=== PATIENT | female | born 1980 | race Caucasian/White ===

== ENCOUNTER 2017-04-06 03:14 | Inpatient (IN) | payer MEDICAID ==
[~2017-04-06] VITALS: Ht 170.2 cm; Wt 61.3 kg
[2017-04-06] MEDS ORDERED: ONDANSETRON ODT 4 MG ONE (04:04)
[2017-04-06] MEDS ORDERED: HYDROmorphone 1 MG/ML, 1ML ONE ×2 (04:04→06:39)
[2017-04-06] MEDS ORDERED: SODIUM CHLORIDE 0.9% 1,000ML IVBOLUS ONE ×2 (04:30→06:00)
[2017-04-06] MEDS ORDERED: ONDANSETRON ODT 4 MG PO ONE (04:30)
[2017-04-06] MEDS ORDERED: HYDROmorphone 1 MG/ML, 1ML IV ONE ×2 (04:30→07:30)
[2017-04-06] MEDS ORDERED: SODIUM CHLORIDE FLUSH 10ML SYR IVF ONE (04:30)
[2017-04-06 05:33] LABS: HEMATOCRIT 32.7 % (34.6-47.8); HEMOGLOBIN 10.5 g/dL (11.7-16.4); WHITE BLOOD COUNT 23.5 x10^3/uL (3.4-10)
[2017-04-06 05:47] LABS: BLOOD UREA NITROGEN 11 mg/dL (7-18)
[2017-04-06 05:52] LABS: ASPARTATE AMINO TRANSFERASE 12 U/L (15-37); DIFF TOTAL CELLS COUNTED 100 CELL DIFF
[2017-04-06 05:53] LABS: ANISOCYTOSIS 1+; VERIFY COUNTS? YES
[2017-04-06 05:54] LABS: MICROCYTOSIS 1+
[2017-04-06 05:57] LABS: HYPOCHROMIA 1+; OVALOCYTES 1+
[2017-04-06] MEDS ORDERED: LIDOCAINE 1%, 20ML ONE (05:59)
[2017-04-06] MEDS ORDERED: VANCOMYCIN PMX 1GM/200ML 200 ML IV ONE (06:00)
[2017-04-06] MEDS ORDERED: VANCOMYCIN PER PHARMACY MC PRN (06:00)
[2017-04-06] MEDS ORDERED: POTASSIUM CHLORIDE 40 MEQ in SODIUM CHLORIDE 0.9% 500 ML IV ONE (07:00)
[2017-04-06] MEDS ORDERED: ETOMIDATE 20 MG/10 ML ONE ×2 (09:19→09:37)
[2017-04-06] MEDS ORDERED: NS + 20MEQ KCL 1,000 ML IV SCH (09:49)
[2017-04-06] MEDS ORDERED: ONDANSETRON 2MG/ML, 2ML IVPush PRN ×2 (10:00→12:00)
[2017-04-06] MEDS ORDERED: CEFEPIME 2 GM in DEXTROSE 5% 100 ML IV SCH (10:00)
[2017-04-06] MEDS ORDERED: DOCUSATE 100 MG CAPSULE PO PRN (10:00)
[2017-04-06] MEDS ORDERED: ACETAMINOPHEN 325 MG TABLET PO PRN (10:00)
[2017-04-06] MEDS: NICOTINE 21 MG/24 HR PATCH.TD24 TD SCH (10:00)
[2017-04-06] MEDS ORDERED: hydrALAzine 20 MG/ML, 1ML IVPush PRN (10:00)
[2017-04-06] MEDS: METRONIDAZOLE PMX 500MG/100ML 100 ML IV SCH ×2 (10:00→19:22)
[2017-04-06] MEDS ORDERED: POLYETHYLENE GLYCOL 17 GM PACKET PO PRN (10:00)
[2017-04-06] MEDS ORDERED: ETOMIDATE 20 MG/10 ML IV ONE ×2 (10:00)
[2017-04-06 10:21] LABS: HEMATOCRIT 31.4 % (34.6-47.8); WHITE BLOOD COUNT 22.7 x10^3/uL (3.4-10)
[2017-04-06 10:35] LABS: TOTAL IRON BINDING CAPACITY 292 mcg/dL (250-450)
[2017-04-06 10:45] LABS: DIFF TOTAL CELLS COUNTED 100 CELL DIFF
[2017-04-06 10:49] LABS: ANISOCYTOSIS 1+; MICROCYTOSIS 1+; VERIFY COUNTS? YES
[2017-04-06 10:50] LABS: HYPOCHROMIA 1+
[2017-04-06] MEDS ORDERED: CEFAZOLIN 1,000 MG ONE (10:51)
[2017-04-06] MEDS ORDERED: SUCCINYLCHOLINE 20 MG/ML, 10ML ONE (10:51)
[2017-04-06] MEDS ORDERED: PROPOFOL 10 MG/ML, 20ML ONE (10:51)
[2017-04-06] MEDS ORDERED: PHENYLEPHRINE 10 MG/ML ONE (10:51)
[2017-04-06] MEDS ORDERED: KETOROLAC 30 MG/1 ML ONE (10:51)
[2017-04-06] MEDS ORDERED: FENTANYL PF 100 MCG/2ML ONE ×4 (11:21→11:53)
[2017-04-06] MEDS ORDERED: MIDAZOLAM 1 MG/ML, 2ML ONE ×2 (11:53→13:04)
[2017-04-06] MEDS ORDERED: LABETALOL 5MG/ML, 20ML IV PRN (12:00)
[2017-04-06] MEDS ORDERED: hydrALAzine 20 MG/ML, 1ML IV PRN (12:00)
[2017-04-06] MEDS ORDERED: OXYcodone 5 MG/5 ML ORAL.SOL UDC PO PRN (12:00)
[2017-04-06] MEDS ORDERED: MEPERIDINE/PF 25MG/0.5ML IVPush PRN (12:00)
[2017-04-06] MEDS ORDERED: PROMETHAZINE 25 MG/ML, 1ML IV PRN (12:00)
[2017-04-06] MEDS ORDERED: ALBUTEROL SULFATE 2.5 MG/3 ML NPPB PRN (12:00)
[2017-04-06] MEDS ORDERED: OXYcodone 5 MG/5 ML ORAL.SOL UDC ONE (12:06)
[2017-04-06] MEDS ORDERED: HYDROmorphone 2 MG/ML, 1ML ONE (12:06)
[2017-04-06] MEDS ORDERED: MEPERIDINE/PF 25MG/0.5ML ONE (12:06)
[2017-04-06] MEDS: FENTANYL PF 100 MCG/2ML IV PRN ×2 (12:12→12:27)
[2017-04-06] MEDS: MIDAZOLAM 1 MG/ML, 2ML IV PRN ×4 (12:13→13:43)
[2017-04-06] MEDS: HYDROmorphone 1 MG/ML, 1ML IV PRN ×6 (12:17→13:17)
[2017-04-06] MEDS: CEFAZOLIN PMX 2GM/50ML 50 ML IVPB SCH ×2 (12:30→21:58)
[2017-04-06 15:46] LABS: HIV 1&2 ANTIBODY SCREEN Nonreactive (Nonreactive); HIV-1 p24 ANTIGEN Nonreactive (Nonreactive)
[2017-04-06 20:00] VITALS: BP 87/50
[2017-04-06] MEDS: NS + 20MEQ KCL 1,000 ML IV SCH (20:00)
[2017-04-06] MEDS: OXYcodone IR 5MG TABLET PO PRN (20:12)
[2017-04-06 22:06] VITALS: BP 90/50
[2017-04-06] MEDS: morphine SULFATE 10 MG/ML, 1ML IVPush PRN (23:03)
[2017-04-07 00:05] VITALS: BP 94/56
[2017-04-07] MEDS: OXYcodone IR 5MG TABLET PO PRN ×4 (00:25→18:38)
[2017-04-07] MEDS: morphine SULFATE 10 MG/ML, 1ML IVPush PRN ×5 (02:23→22:25)
[2017-04-07] MEDS: METRONIDAZOLE PMX 500MG/100ML 100 ML IV SCH ×4 (02:40→20:30)
[2017-04-07 04:19] VITALS: BP 90/50
[2017-04-07] MEDS: NS + 20MEQ KCL 1,000 ML IV SCH ×2 (05:30→10:48)
[2017-04-07] MEDS: CEFAZOLIN PMX 2GM/50ML 50 ML IVPB SCH ×2 (05:51→13:31)
[2017-04-07 07:24] VITALS: BP 92/53
[2017-04-07] MEDS: LORazepam 2 MG/ML, 1ML IVPush PRN ×3 (08:01→22:46)
[2017-04-07 09:03] LABS: HEMATOCRIT 26.6 % (34.6-47.8); HEMOGLOBIN 8.4 g/dL (11.7-16.4); WHITE BLOOD COUNT 21.6 x10^3/uL (3.4-10)
[2017-04-07 09:13] LABS: ASPARTATE AMINO TRANSFERASE 8 U/L (15-37); BLOOD UREA NITROGEN 10 mg/dL (7-18)
[2017-04-07] MEDS: METHADONE 5 MG TABLET PO SCH ×2 (10:48→20:50)
[2017-04-07] MEDS: NICOTINE 21 MG/24 HR PATCH.TD24 TD SCH (10:48)
[2017-04-07] MEDS ORDERED: POTASSIUM CHLORIDE 20 MEQ TAB.ER.PRT PO ONE (12:00)
[2017-04-07] MEDS: DOCUSATE 100 MG CAPSULE PO SCH ×2 (12:00→20:50)
[2017-04-07] MEDS ORDERED: IBUPROFEN 200 MG TABLET PO PRN (14:30)
[2017-04-07 16:44] VITALS: BP 97/58
[2017-04-07] MEDS: DIPHENHYDRAMINE 25 MG CAPSULE PO PRN (17:14)
[2017-04-07] MEDS: FERROUS GLUCONATE 324 MG TABLET PO SCH (18:38)
[2017-04-07 19:39] VITALS: BP 93/53
[2017-04-07] MEDS ORDERED: VANCOMYCIN PER PHARMACY MC PRN (20:30)
[2017-04-07] MEDS: CEFTRIAXONE PMX 2GM/50ML 50 ML IV SCH (20:50)
[2017-04-07] MEDS ORDERED: PHARMACOKINETIC MONITORING MC PRN (21:00)
[2017-04-07] MEDS ORDERED: VANCOMYCIN PMX 1GM/200ML 200 ML IV ONE (21:00)
[2017-04-07] MEDS ORDERED: PHARMACOKINETIC CONSULTATION MC ONE (21:00)
[2017-04-08] MEDS: NS + 20MEQ KCL 1,000 ML IV SCH ×3 (00:41→16:48)
[2017-04-08 01:36] VITALS: BP 97/61
[2017-04-08] MEDS: METRONIDAZOLE PMX 500MG/100ML 100 ML IV SCH ×3 (02:36→18:09)
[2017-04-08 05:39] LABS: HEMATOCRIT 24.4 % (34.6-47.8); HEMOGLOBIN 7.6 g/dL (11.7-16.4)
[2017-04-08 05:41] LABS: BLOOD UREA NITROGEN 10 mg/dL (7-18)
[2017-04-08] MEDS: OXYcodone IR 5MG TABLET PO PRN ×3 (05:55→18:17)
[2017-04-08] MEDS: DIPHENHYDRAMINE 25 MG CAPSULE PO PRN (05:56)
[2017-04-08 06:45] LABS: ANISOCYTOSIS 1+; HYPOCHROMIA 1+; MICROCYTOSIS 1+
[2017-04-08 10:08] VITALS: BP 104/66
[2017-04-08] MEDS: DOCUSATE 100 MG CAPSULE PO SCH ×2 (10:11→20:27)
[2017-04-08] MEDS: NICOTINE 21 MG/24 HR PATCH.TD24 TD SCH (10:12)
[2017-04-08] MEDS: VANCOMYCIN PMX 1GM/200ML 200 ML IV SCH ×2 (10:14→21:25)
[2017-04-08] MEDS: METHADONE 5 MG TABLET PO SCH ×2 (10:14→20:27)
[2017-04-08] MEDS: morphine SULFATE 10 MG/ML, 1ML IVPush PRN ×3 (10:14→21:25)
[2017-04-08] MEDS: FERROUS GLUCONATE 324 MG TABLET PO SCH ×2 (10:14→18:09)
[2017-04-08] MEDS: LORazepam 2 MG/ML, 1ML IVPush PRN ×2 (12:01→18:17)
[2017-04-08 14:15] VITALS: BP 98/61
[2017-04-08 19:52] VITALS: BP 104/68
[2017-04-08] MEDS: CEFTRIAXONE PMX 2GM/50ML 50 ML IV SCH (20:28)
[2017-04-09 01:40] VITALS: BP 100/68
[2017-04-09] MEDS: METRONIDAZOLE PMX 500MG/100ML 100 ML IV SCH ×2 (02:28→10:08)
[2017-04-09] MEDS: NS + 20MEQ KCL 1,000 ML IV SCH (05:20)
[2017-04-09] MEDS: morphine SULFATE 10 MG/ML, 1ML IVPush PRN ×2 (05:21→09:09)
[2017-04-09] MEDS: LORazepam 2 MG/ML, 1ML IVPush PRN ×2 (05:53→10:08)
[2017-04-09 06:31] VITALS: BP 114/76
[2017-04-09 06:31] LABS: HEMATOCRIT 25.1 % (34.6-47.8); HEMOGLOBIN 7.9 g/dL (11.7-16.4); WHITE BLOOD COUNT 10.4 x10^3/uL (3.4-10)
[2017-04-09 06:36] LABS: BLOOD UREA NITROGEN 9 mg/dL (7-18)
[2017-04-09] MEDS: FERROUS GLUCONATE 324 MG TABLET PO SCH (09:08)
[2017-04-09] MEDS: DOCUSATE 100 MG CAPSULE PO SCH (09:08)
[2017-04-09] MEDS: NICOTINE 21 MG/24 HR PATCH.TD24 TD SCH (09:09)
[2017-04-09] MEDS: METHADONE 5 MG TABLET PO SCH (09:09)
[2017-04-09] MEDS: VANCOMYCIN PMX 1GM/200ML 200 ML IV SCH (09:09)
== END 2017-04-09 11:29 | disposition left against medical advice (07) | DRG 871 ==
LOC: ED 03:43 → ORIP 09:49 → 4NOR 13:55
PROVIDERS: ADMIT Internal Medicine; ATTEND Internal Medicine
DX: A41.9 Sepsis, unspecified organism (principal); M72.6 Necrotizing fasciitis; E44.0 Moderate protein-calorie malnutrition; E87.1 Hypo-osmolality and hyponatremia; D50.9 Iron deficiency anemia, unspecified; F13.10 Sedative, hypnotic or anxiolytic abuse, uncomplicated; L02.415 Cutaneous abscess of right lower limb; L03.90 Cellulitis, unspecified; F11.10 Opioid abuse, uncomplicated; D75.89 Other specified diseases of blood and blood-forming organs; E87.6 Hypokalemia; F17.210 Nicotine dependence, cigarettes, uncomplicated; F19.10 Other psychoactive substance abuse, uncomplicated; R65.20 Severe sepsis without septic shock; Z88.0 Allergy status to penicillin; Z68.21 Body mass index [BMI] 21.0-21.9, adult; Z71.6 Tobacco abuse counseling
CPT/HCPCS: 36415; 80048; 80053; 81001; 83540; 83550; 83605; 83735; 84100; 84145; 84703; 85025; 85730; 86703; 86704; 86706; 86708; 86803; 87040; 87070; 87075; 87076; 87086; 87176; 87205; 87340; 87899; 93005; 93306; 96361; 96374; 96375; 96376; J0690; J0696; J1170; J1885; J2175; J2250; J2704; J3010; J3370; J3480; Q0162; G0435; J0330; J2060; J2270; J2370; J7030; Q0163

== ENCOUNTER 2018-06-10 13:40 | Emergency (ER) | payer MEDICAID ==
[~2018-06-10] VITALS: Ht 170.2 cm; Wt 47.3 kg
[~2018-06-10 13:40] MED LIST: CEPH-368 PO; ERGO500017 PO; ERTA1VIA IV; KETO15CR2 TP; METH-356 PO; METH12VI2 SQ; METR500T PO; OXYC5TAB3 PO; PANT40TA5 PO; PREG75CA PO
[2018-06-10 15:40] LABS: BASOPHILS # (AUTO) 0.07 x10^3/uL (0-0.1); BASOPHILS % (AUTO) 1 % (0-1); EOSINOPHILS # (AUTO) 0.27 x10^3/uL (0-0.4); EOSINOPHILS % (AUTO) 2 % (1-7); LYMPHOCYTES # (AUTO) 2.08 x10^3/uL (1-3.4); LYMPHOCYTES % (AUTO) 17 % (22-44); MD NO; MEAN CORPUSCULAR HGB CONC 32.7 g/dL (32.4-35.8); MEAN CORPUSCULAR VOLUME 82.5 fL (80-100); MEAN PLATELET VOLUME 7.2 fL (7.4-10.4); MONOCYTES # (AUTO) 0.52 x10^3/uL (0.2-0.8); MONOCYTES % (AUTO) 4 % (2-9); NEUTROPHILS # (AUTO) 9.33 x10^3/uL (1.8-6.8); NEUTROPHILS % (AUTO) 76 % (42-75); PLATELET COUNT 460 x10^3/uL (130-400); RED CELL DISTRIBUTION WIDTH 16.6 % (9.6-15.2)
[2018-06-10 15:47] LABS: ALBUMIN 2.9 g/dL (3.4-5.0); ANION GAP 8 mmol/L (5-15); CHLORIDE 105 mmol/L (98-107); CREATININE 0.55 mg/dL (0.55-1.02)
[2018-06-10] MEDS ORDERED: CEFTRIAXONE 1,000 MG IM ONE (16:00)
[2018-06-10] MEDS ORDERED: CEFTRIAXONE 1,000 MG ONE (16:04)
[2018-06-10 17:23] VITALS: BP 108/53
== END 2018-06-10 19:08 | disposition home or self-care (01) ==
LOC: ED 16:30
DX: L03.116 Cellulitis of left lower limb (principal); F17.200 Nicotine dependence, unspecified, uncomplicated
CPT/HCPCS: 36415; 73552; 80048; 82040; 85025; 96372; 99285; J0696

== ENCOUNTER 2018-08-02 19:45 | Inpatient (IN) | payer MEDICAID ==
[~2018-08-02] VITALS: Ht 170.2 cm; Wt 52.8 kg
[2018-08-02] MEDS ORDERED: SODIUM CHLORIDE FLUSH 10ML SYR IVF ONE (20:00)
[2018-08-02 20:26] LABS: MEAN CORPUSCULAR HEMOGLOBIN 27.2 pg (27.0-34.8); MEAN CORPUSCULAR HGB CONC 33.7 g/dL (32.4-35.8); MEAN CORPUSCULAR VOLUME 80.8 fL (80-100); MEAN PLATELET VOLUME 7.1 fL (7.4-10.4); PLATELET COUNT 530 x10^3/uL (130-400); RED BLOOD COUNT 4.79 x10^6/uL (3.82-5.3)
[2018-08-02 20:35] LABS: ALBUMIN 3.2 g/dL (3.4-5.0); ANION GAP 11 mmol/L (5-15); CALCIUM 9.3 mg/dL (8.5-10.1); CHLORIDE 109 mmol/L (98-107); CREATININE 0.71 mg/dL (0.55-1.02)
[2018-08-02 20:41] LABS: BASOPHILS # (AUTO) 0.03 x10^3/uL (0-0.1); BASOPHILS % (AUTO) 0 % (0-1); EOSINOPHILS % (AUTO) 3 % (1-7); LYMPHOCYTES # (AUTO) 2.63 x10^3/uL (1-3.4); LYMPHOCYTES % (AUTO) 14 % (22-44); MD SCAN; MONOCYTES # (AUTO) 0.68 x10^3/uL (0.2-0.8); MONOCYTES % (AUTO) 4 % (2-9); NEUTROPHILS # (AUTO) 14.76 x10^3/uL (1.8-6.8); NEUTROPHILS % (AUTO) 79 % (42-75)
[2018-08-02] MEDS ORDERED: CEFTRIAXONE 1,000 MG in SODIUM CHLORIDE 0.9% 50 ML IVPB ONE (22:00)
[2018-08-02] MEDS ORDERED: VANCOMYCIN 1,300 MG in SODIUM CHLORIDE 0.9% 250 ML IV ONE (22:00)
[2018-08-02] MEDS ORDERED: VANCOMYCIN PER PHARMACY IV ONE (22:00)
[2018-08-02] MEDS ORDERED: SODIUM CHLORIDE FLUSH 10ML SYR IVF PRN (22:30)
[2018-08-02] MEDS ORDERED: OMNIPAQUE 350 MG/ML, 100ML BOTTLE ONE (23:21)
[2018-08-02 23:32] VITALS: BP 123/72
[2018-08-03] MEDS ORDERED: VANCOMYCIN PER PHARMACY MC PRN (00:30)
[2018-08-03] MEDS ORDERED: DOCUSATE 100 MG CAPSULE PO PRN (00:30)
[2018-08-03] MEDS ORDERED: ONDANSETRON ODT 4 MG PO PRN (00:30)
[2018-08-03] MEDS: NICOTINE 21 MG/24 HR PATCH.TD24 TD SCH (00:30)
[2018-08-03] MEDS ORDERED: LIDODERM 5% PATCH TD PRN (00:30)
[2018-08-03] MEDS: ACETAMINOPHEN 325 MG TABLET PO PRN ×3 (00:55→22:18)
[2018-08-03] MEDS ORDERED: PHARMACOKINETIC CONSULTATION MC ONE (01:00)
[2018-08-03] MEDS ORDERED: PHARMACOKINETIC MONITORING MC PRN (01:00)
[2018-08-03] MEDS: CEFTRIAXONE PMX 1GM/50ML 50 ML IV SCH ×3 (01:19→12:51)
[2018-08-03 03:16] VITALS: BP 126/69
[2018-08-03 08:11] VITALS: BP 148/73
[2018-08-03] MEDS ORDERED: CEFTRIAXONE PMX 1GM/50ML 50 ML IV SCH (10:00)
[2018-08-03] MEDS ORDERED: METHADONE 5 MG TABLET ONE (10:17)
[2018-08-03] MEDS: METHADONE 10 MG TABLET PO SCH (10:27)
[2018-08-03] MEDS: PREGABALIN 25 MG CAPSULE PO SCH ×3 (10:27→21:50)
[2018-08-03] MEDS: VANCOMYCIN PMX 1GM/200ML 200 ML IV SCH ×2 (11:38→23:11)
[2018-08-03] MEDS: MORPHINE SULFATE 4 MG/ML, 1ML IVPush PRN ×3 (12:16→21:50)
[2018-08-03 13:35] VITALS: BP 134/68
[2018-08-03 14:00] LABS: HCG UR SG 1.025 (1.003-1.030)
[2018-08-03] MEDS ORDERED: KETAMINE 50 MG/ML, 10ML ONE (14:36)
[2018-08-03] MEDS ORDERED: BACITRACIN 50,000 UNIT ONE (14:43)
[2018-08-03] MEDS ORDERED: MIDAZOLAM 1 MG/ML, 2ML ONE ×2 (14:48→15:40)
[2018-08-03] MEDS ORDERED: FENTANYL PF 250 MCG/5ML ONE (14:48)
[2018-08-03] MEDS ORDERED: PROPOFOL 10 MG/ML, 20ML ONE (14:55)
[2018-08-03] MEDS ORDERED: ONDANSETRON 2MG/ML, 2ML ONE (14:55)
[2018-08-03] MEDS ORDERED: BACITRACIN 50,000 UNIT IRRIG ONE (15:12)
[2018-08-03] MEDS ORDERED: ONDANSETRON 2MG/ML, 2ML IV PRN (15:30)
[2018-08-03] MEDS ORDERED: LABETALOL 5MG/ML, 20ML IV PRN (15:30)
[2018-08-03] MEDS ORDERED: PROMETHAZINE 12.5 MG SUPP PR PRN (15:30)
[2018-08-03] MEDS ORDERED: DIPHENHYDRAMINE 50 MG/ML, 1ML IVPush PRN (15:30)
[2018-08-03] MEDS ORDERED: MORPHINE SULFATE 4 MG/ML, 1ML IVPush PRN (15:30)
[2018-08-03] MEDS ORDERED: OXYcodone 5 MG/5 ML ORAL.SOL UDC PO PRN (15:30)
[2018-08-03] MEDS ORDERED: MEPERIDINE/PF 25MG/0.5ML IVPush PRN (15:30)
[2018-08-03] MEDS ORDERED: PROCHLORPERAZINE 5 MG/ML, 2ML IV PRN (15:30)
[2018-08-03] MEDS ORDERED: ONDANSETRON ODT 8 MG PO PRN (15:30)
[2018-08-03] MEDS ORDERED: PROMETHAZINE 25 MG SUPP PR PRN (15:30)
[2018-08-03] MEDS ORDERED: PROMETHAZINE 25 MG/ML, 1ML IV PRN (15:30)
[2018-08-03] MEDS ORDERED: EPHEDRINE 50 MG/ML, 1ML IVPush PRN (15:30)
[2018-08-03] MEDS: FENTANYL PF 100 MCG/2ML IV PRN ×2 (15:38→15:44)
[2018-08-03] MEDS ORDERED: FENTANYL PF 100 MCG/2ML ONE (15:40)
[2018-08-03] MEDS ORDERED: HYDROmorphone 2 MG/ML, 1ML ONE ×2 (15:40→16:02)
[2018-08-03] MEDS ORDERED: OXYcodone 5 MG/5 ML ORAL.SOL UDC ONE (15:40)
[2018-08-03] MEDS: MIDAZOLAM 1 MG/ML, 2ML IV PRN ×2 (15:45→15:50)
[2018-08-03] MEDS: HYDROmorphone 2 MG/ML, 1ML IVPush PRN ×8 (15:46→16:24)
[2018-08-03] MEDS ORDERED: MIDAZOLAM 1 MG/ML, 2ML IV PRN (16:00)
[2018-08-03 16:57] VITALS: BP 159/80
[2018-08-03 19:26] VITALS: BP 132/80
[2018-08-03] MEDS: TEMAZEPAM 15 MG CAPSULE PO PRN (21:50)
[2018-08-04 00:24] VITALS: BP 108/54
[2018-08-04] MEDS: NICOTINE 21 MG/24 HR PATCH.TD24 TD SCH (00:30)
[2018-08-04] MEDS: CEFTRIAXONE PMX 1GM/50ML 50 ML IV SCH (01:14)
[2018-08-04 05:14] LABS: ALBUMIN 2.5 g/dL (3.4-5.0); ANION GAP 6 mmol/L (5-15); CALCIUM 8.7 mg/dL (8.5-10.1); CHLORIDE 110 mmol/L (98-107)
[2018-08-04 05:18] LABS: ALANINE AMINOTRANSFERASE 21 U/L (12-78); ALKALINE PHOSPHATASE 137 U/L (45-117); BILIRUBIN,TOTAL 0.2 mg/dL (0.2-1.0); CREATININE 0.56 mg/dL (0.55-1.02); TOTAL PROTEIN 7.5 g/dL (6.4-8.2)
[2018-08-04 05:25] LABS: BASOPHILS # (AUTO) 0.06 x10^3/uL (0-0.1); BASOPHILS % (AUTO) 0 % (0-1); EOSINOPHILS # (AUTO) 0.41 x10^3/uL (0-0.4); EOSINOPHILS % (AUTO) 3 % (1-7); LYMPHOCYTES # (AUTO) 1.95 x10^3/uL (1-3.4); LYMPHOCYTES % (AUTO) 14 % (22-44); MD NO; MEAN CORPUSCULAR HEMOGLOBIN 27.4 pg (27.0-34.8); MEAN CORPUSCULAR HGB CONC 33.5 g/dL (32.4-35.8); MEAN CORPUSCULAR VOLUME 81.9 fL (80-100); MEAN PLATELET VOLUME 7.4 fL (7.4-10.4); MONOCYTES # (AUTO) 1.05 x10^3/uL (0.2-0.8); MONOCYTES % (AUTO) 7 % (2-9); NEUTROPHILS # (AUTO) 10.82 x10^3/uL (1.8-6.8); NEUTROPHILS % (AUTO) 76 % (42-75); PLATELET COUNT 453 x10^3/uL (130-400); RED BLOOD COUNT 4.76 x10^6/uL (3.82-5.3); RED CELL DISTRIBUTION WIDTH 16.4 % (9.6-15.2)
[2018-08-04] MEDS: ACETAMINOPHEN 325 MG TABLET PO PRN ×2 (06:30→21:27)
[2018-08-04] MEDS: MORPHINE SULFATE 4 MG/ML, 1ML IVPush PRN ×4 (06:30→21:27)
[2018-08-04 07:56] VITALS: BP 92/51
[2018-08-04] MEDS: PREGABALIN 25 MG CAPSULE PO SCH ×3 (08:55→21:28)
[2018-08-04] MEDS: METHADONE 10 MG TABLET PO SCH (08:55)
[2018-08-04 11:22] VITALS: BP 117/65
[2018-08-04] MEDS: VANCOMYCIN PMX 1GM/200ML 200 ML IV SCH (11:23)
[2018-08-04] MEDS ORDERED: OXYcodone/APAP 5/325MG TABLET PO PRN (13:00)
[2018-08-04 13:28] VITALS: BP 115/70
[2018-08-04] MEDS: SODIUM CHLORIDE 0.9% IV SCH (13:34)
[2018-08-04] MEDS: DAPTOMYCIN IV SCH (13:34)
[2018-08-04 20:00] VITALS: BP 111/65
[2018-08-04] MEDS: TEMAZEPAM 15 MG CAPSULE PO PRN (21:27)
[2018-08-05] MEDS: NICOTINE 21 MG/24 HR PATCH.TD24 TD SCH (00:30)
[2018-08-05 03:21] VITALS: BP 102/58
[2018-08-05] MEDS: ACETAMINOPHEN 325 MG TABLET PO PRN ×2 (03:35→07:51)
[2018-08-05] MEDS: MORPHINE SULFATE 4 MG/ML, 1ML IVPush PRN ×5 (03:35→21:18)
[2018-08-05 04:11] LABS: MICROSCOPIC NOT IND
[2018-08-05 07:39] VITALS: BP 125/69
[2018-08-05] MEDS: PREGABALIN 25 MG CAPSULE PO SCH ×3 (08:36→21:18)
[2018-08-05] MEDS: METHADONE 10 MG TABLET PO SCH (08:36)
[2018-08-05] MEDS: ACETAMINOPHEN 325 MG TABLET PO SCH ×2 (09:00→16:44)
[2018-08-05 09:13] LABS: BASOPHILS # (AUTO) 0.03 x10^3/uL (0-0.1); BASOPHILS % (AUTO) 0 % (0-1); EOSINOPHILS % (AUTO) 7 % (1-7); LYMPHOCYTES # (AUTO) 2.13 x10^3/uL (1-3.4); LYMPHOCYTES % (AUTO) 25 % (22-44); MD NO; MEAN CORPUSCULAR HEMOGLOBIN 26.5 pg (27.0-34.8); MEAN CORPUSCULAR HGB CONC 32.6 g/dL (32.4-35.8); MEAN CORPUSCULAR VOLUME 81.3 fL (80-100); MEAN PLATELET VOLUME 7.7 fL (7.4-10.4); MONOCYTES # (AUTO) 0.61 x10^3/uL (0.2-0.8); MONOCYTES % (AUTO) 7 % (2-9); NEUTROPHILS # (AUTO) 4.99 x10^3/uL (1.8-6.8); NEUTROPHILS % (AUTO) 60 % (42-75); PLATELET COUNT 440 x10^3/uL (130-400); RED BLOOD COUNT 4.41 x10^6/uL (3.82-5.3); RED CELL DISTRIBUTION WIDTH 16.2 % (9.6-15.2)
[2018-08-05] MEDS: HEPARIN 5,000 UNITS/ML, 1ML SQ SCH (13:00)
[2018-08-05 13:20] VITALS: BP 120/70
[2018-08-05] MEDS: SODIUM CHLORIDE 0.9% IV SCH (13:22)
[2018-08-05] MEDS: DAPTOMYCIN IV SCH (13:22)
[2018-08-05 19:48] VITALS: BP 100/57
[2018-08-05] MEDS: TEMAZEPAM 15 MG CAPSULE PO PRN (21:18)
[2018-08-06] MEDS: HEPARIN 5,000 UNITS/ML, 1ML SQ SCH ×2 (01:04→13:00)
[2018-08-06] MEDS: NICOTINE 21 MG/24 HR PATCH.TD24 TD SCH (01:04)
[2018-08-06 01:13] VITALS: BP 104/58
[2018-08-06] MEDS: ACETAMINOPHEN 325 MG TABLET PO SCH ×4 (01:25→20:49)
[2018-08-06] MEDS: MORPHINE SULFATE 4 MG/ML, 1ML IVPush PRN ×5 (01:25→20:49)
[2018-08-06 07:55] VITALS: BP 102/59
[2018-08-06] MEDS: PREGABALIN 25 MG CAPSULE PO SCH ×3 (08:15→20:49)
[2018-08-06] MEDS: METHADONE 10 MG TABLET PO SCH (08:15)
[2018-08-06 12:46] VITALS: BP 124/71
[2018-08-06] MEDS: DAPTOMYCIN IV SCH (14:33)
[2018-08-06] MEDS: SODIUM CHLORIDE 0.9% IV SCH (14:33)
[2018-08-06 19:10] VITALS: BP 106/61
[2018-08-06] MEDS: TEMAZEPAM 15 MG CAPSULE PO PRN (20:49)
[2018-08-07] MEDS: MORPHINE SULFATE 4 MG/ML, 1ML IVPush PRN ×4 (01:34→23:03)
[2018-08-07] MEDS: HEPARIN 5,000 UNITS/ML, 1ML SQ SCH ×2 (01:34→13:00)
[2018-08-07] MEDS: NICOTINE 21 MG/24 HR PATCH.TD24 TD SCH (01:34)
[2018-08-07] MEDS: ACETAMINOPHEN 325 MG TABLET PO SCH ×4 (01:35→20:18)
[2018-08-07 01:38] VITALS: BP 124/75
[2018-08-07 06:19] LABS: HCT (SEDRATE) 35.3 % (34.6-47.8)
[2018-08-07 07:31] VITALS: BP 120/65
[2018-08-07] MEDS: PREGABALIN 25 MG CAPSULE PO SCH ×3 (08:49→20:18)
[2018-08-07] MEDS: METHADONE 10 MG TABLET PO SCH (08:49)
[2018-08-07] MEDS: OXYcodone/APAP 5/325MG TABLET PO PRN ×2 (11:07→20:19)
[2018-08-07 12:29] VITALS: BP 137/87
[2018-08-07] MEDS: SODIUM CHLORIDE 0.9% IV SCH (12:58)
[2018-08-07] MEDS: DAPTOMYCIN IV SCH (12:58)
[2018-08-07] MEDS: DIPHENHYDRAMINE 25 MG CAPSULE PO PRN (14:08)
[2018-08-07] MEDS ORDERED: PREGABALIN 25 MG CAPSULE PO SCH (16:00)
[2018-08-07 19:36] VITALS: BP 139/69
[2018-08-07] MEDS: TEMAZEPAM 15 MG CAPSULE PO PRN (20:19)
[2018-08-08] MEDS: ACETAMINOPHEN 325 MG TABLET PO SCH ×4 (00:16→20:44)
[2018-08-08] MEDS: HEPARIN 5,000 UNITS/ML, 1ML SQ SCH ×2 (00:16→13:00)
[2018-08-08 02:49] VITALS: BP 87/48
[2018-08-08 02:55] VITALS: BP 94/53
[2018-08-08] MEDS: OXYcodone/APAP 5/325MG TABLET PO PRN ×3 (05:34→20:44)
[2018-08-08 07:45] VITALS: BP 107/63
[2018-08-08] MEDS: METHADONE 10 MG TABLET PO SCH (08:53)
[2018-08-08] MEDS: PREGABALIN 25 MG CAPSULE PO SCH ×3 (08:53→20:44)
[2018-08-08] MEDS: MORPHINE SULFATE 4 MG/ML, 1ML IVPush PRN ×2 (08:54→17:09)
[2018-08-08 13:14] VITALS: BP 108/65
[2018-08-08] MEDS: SODIUM CHLORIDE 0.9% IV SCH (13:33)
[2018-08-08] MEDS: DAPTOMYCIN IV SCH (13:33)
[2018-08-08 18:49] VITALS: BP 113/68
[2018-08-08] MEDS: DIPHENHYDRAMINE 25 MG CAPSULE PO PRN (20:44)
[2018-08-08] MEDS: TEMAZEPAM 15 MG CAPSULE PO PRN (22:02)
[2018-08-09] MEDS: HEPARIN 5,000 UNITS/ML, 1ML SQ SCH ×2 (01:00→13:00)
[2018-08-09 01:30] VITALS: BP 97/61
[2018-08-09] MEDS: ACETAMINOPHEN 325 MG TABLET PO SCH ×5 (01:30→23:17)
[2018-08-09] MEDS: MORPHINE SULFATE 4 MG/ML, 1ML IVPush PRN ×3 (02:57→23:17)
[2018-08-09] MEDS: OXYcodone/APAP 5/325MG TABLET PO PRN (05:47)
[2018-08-09 05:56] LABS: BASOPHILS # (AUTO) 0.08 x10^3/uL (0-0.1); BASOPHILS % (AUTO) 1 % (0-1); EOSINOPHILS # (AUTO) 0.31 x10^3/uL (0-0.4); EOSINOPHILS % (AUTO) 3 % (1-7); LYMPHOCYTES # (AUTO) 2.75 x10^3/uL (1-3.4); LYMPHOCYTES % (AUTO) 28 % (22-44); MD NO; MEAN CORPUSCULAR HEMOGLOBIN 28.2 pg (27.0-34.8); MEAN CORPUSCULAR HGB CONC 34.6 g/dL (32.4-35.8); MEAN CORPUSCULAR VOLUME 81.5 fL (80-100); MEAN PLATELET VOLUME 7.5 fL (7.4-10.4); MONOCYTES # (AUTO) 0.68 x10^3/uL (0.2-0.8); MONOCYTES % (AUTO) 7 % (2-9); NEUTROPHILS # (AUTO) 6.01 x10^3/uL (1.8-6.8); NEUTROPHILS % (AUTO) 61 % (42-75); PLATELET COUNT 446 x10^3/uL (130-400); RED BLOOD COUNT 4.43 x10^6/uL (3.82-5.3); RED CELL DISTRIBUTION WIDTH 16.2 % (9.6-15.2)
[2018-08-09 06:03] LABS: CHLORIDE 107 mmol/L (98-107)
[2018-08-09 06:22] LABS: ANION GAP 8 mmol/L (5-15); CALCIUM 9.3 mg/dL (8.5-10.1); CREATININE 0.71 mg/dL (0.55-1.02)
[2018-08-09 07:39] VITALS: BP 99/64
[2018-08-09] MEDS: METHADONE 10 MG TABLET PO SCH (09:06)
[2018-08-09] MEDS: PREGABALIN 25 MG CAPSULE PO SCH ×3 (09:06→20:38)
[2018-08-09 12:58] VITALS: BP 123/75
[2018-08-09] MEDS: DAPTOMYCIN IV SCH (14:08)
[2018-08-09] MEDS: SODIUM CHLORIDE 0.9% IV SCH (14:08)
[2018-08-09 20:31] VITALS: BP 111/66
[2018-08-09] MEDS: TEMAZEPAM 15 MG CAPSULE PO PRN (20:38)
[2018-08-09] MEDS: DIPHENHYDRAMINE 25 MG CAPSULE PO PRN (23:17)
[2018-08-10 00:10] VITALS: BP 136/87
[2018-08-10] MEDS: HEPARIN 5,000 UNITS/ML, 1ML SQ SCH ×2 (00:34→13:00)
[2018-08-10] MEDS: ACETAMINOPHEN 325 MG TABLET PO SCH ×3 (04:52→21:08)
[2018-08-10] MEDS: OXYcodone/APAP 5/325MG TABLET PO PRN (04:52)
[2018-08-10 07:41] VITALS: BP 139/82
[2018-08-10 07:49] VITALS: BP 103/61
[2018-08-10] MEDS: PREGABALIN 25 MG CAPSULE PO SCH (09:02)
[2018-08-10] MEDS: METHADONE 10 MG TABLET PO SCH (09:02)
[2018-08-10] MEDS: SODIUM CHLORIDE 0.9% IV SCH (14:14)
[2018-08-10] MEDS: DAPTOMYCIN IV SCH (14:14)
[2018-08-10 14:50] VITALS: BP 109/64
[2018-08-10] MEDS: GABAPENTIN 100 MG CAPSULE PO PRN (15:59)
[2018-08-10] MEDS ORDERED: GABAPENTIN 100 MG CAPSULE PO SCH (16:00)
[2018-08-10 20:02] VITALS: BP 129/66
[2018-08-10] MEDS: METHADONE 5 MG TABLET PO SCH (21:08)
[2018-08-10] MEDS: TEMAZEPAM 15 MG CAPSULE PO PRN (21:08)
[2018-08-11] MEDS: DIPHENHYDRAMINE 25 MG CAPSULE PO PRN (00:21)
[2018-08-11] MEDS: GABAPENTIN 100 MG CAPSULE PO PRN (00:21)
[2018-08-11 00:26] VITALS: BP 128/72
[2018-08-11] MEDS: HEPARIN 5,000 UNITS/ML, 1ML SQ SCH ×2 (01:00→12:49)
[2018-08-11] MEDS: ACETAMINOPHEN 325 MG TABLET PO SCH ×4 (04:15→23:27)
[2018-08-11 07:18] VITALS: BP 132/76
[2018-08-11] MEDS: METHADONE 5 MG TABLET PO SCH ×3 (08:47→21:27)
[2018-08-11] MEDS: PREGABALIN 25 MG CAPSULE PO PRN ×2 (10:08→21:26)
[2018-08-11 13:03] VITALS: BP 115/68
[2018-08-11] MEDS: SODIUM CHLORIDE 0.9% IV SCH (14:03)
[2018-08-11] MEDS: DAPTOMYCIN IV SCH (14:03)
[2018-08-11] MEDS: ORAJEL 7GM TUBE MM PRN (14:03)
[2018-08-11 20:09] VITALS: BP 137/85
[2018-08-11] MEDS: TEMAZEPAM 15 MG CAPSULE PO PRN (21:27)
[2018-08-12] MEDS: HEPARIN 5,000 UNITS/ML, 1ML SQ SCH ×2 (00:54→11:46)
[2018-08-12 01:55] VITALS: BP 135/83
[2018-08-12] MEDS: ORAJEL 7GM TUBE MM PRN (05:35)
[2018-08-12] MEDS: ACETAMINOPHEN 325 MG TABLET PO SCH ×3 (05:45→17:30)
[2018-08-12 07:56] VITALS: BP 131/86
[2018-08-12] MEDS: METHADONE 5 MG TABLET PO SCH ×3 (08:12→22:45)
[2018-08-12] MEDS: PREGABALIN 25 MG CAPSULE PO PRN ×2 (10:50→17:10)
[2018-08-12 12:40] VITALS: BP 90/53
[2018-08-12] MEDS: SODIUM CHLORIDE 0.9% IV SCH (14:30)
[2018-08-12] MEDS: DAPTOMYCIN IV SCH (14:30)
[2018-08-12 18:18] VITALS: BP 110/65
[2018-08-12] MEDS: TEMAZEPAM 15 MG CAPSULE PO PRN (22:46)
[2018-08-13] MEDS: HEPARIN 5,000 UNITS/ML, 1ML SQ SCH ×2 (01:00→13:06)
[2018-08-13] MEDS: PREGABALIN 25 MG CAPSULE PO PRN ×2 (01:25→11:36)
[2018-08-13] MEDS: DIPHENHYDRAMINE 25 MG CAPSULE PO PRN ×2 (01:26→20:03)
[2018-08-13] MEDS: ACETAMINOPHEN 325 MG TABLET PO SCH ×4 (01:26→20:01)
[2018-08-13 01:29] VITALS: BP 121/69
[2018-08-13 05:29] LABS: BASOPHILS # (AUTO) 0.12 x10^3/uL (0-0.1); BASOPHILS % (AUTO) 1 % (0-1); EOSINOPHILS # (AUTO) 0.32 x10^3/uL (0-0.4); EOSINOPHILS % (AUTO) 3 % (1-7); LYMPHOCYTES # (AUTO) 2.19 x10^3/uL (1-3.4); LYMPHOCYTES % (AUTO) 21 % (22-44); MD NO; MEAN CORPUSCULAR HEMOGLOBIN 27.5 pg (27.0-34.8); MEAN CORPUSCULAR HGB CONC 33.7 g/dL (32.4-35.8); MEAN CORPUSCULAR VOLUME 81.8 fL (80-100); MEAN PLATELET VOLUME 7.6 fL (7.4-10.4); MONOCYTES # (AUTO) 0.71 x10^3/uL (0.2-0.8); MONOCYTES % (AUTO) 7 % (2-9); NEUTROPHILS # (AUTO) 6.91 x10^3/uL (1.8-6.8); NEUTROPHILS % (AUTO) 68 % (42-75); PLATELET COUNT 441 x10^3/uL (130-400); RED BLOOD COUNT 4.55 x10^6/uL (3.82-5.3)
[2018-08-13 05:41] LABS: HCT (SEDRATE) 37.2 % (34.6-47.8)
[2018-08-13 05:42] LABS: ALANINE AMINOTRANSFERASE 56 U/L (12-78); ALBUMIN 3.5 g/dL (3.4-5.0); ANION GAP 7 mmol/L (5-15); C-REACTIVE PROTEIN, QUANT 0.68 mg/dL (0.02-0.49); CALCIUM 9.5 mg/dL (8.5-10.1); CHLORIDE 108 mmol/L (98-107)
[2018-08-13 05:44] LABS: ALKALINE PHOSPHATASE 169 U/L (45-117); BILIRUBIN,TOTAL 0.2 mg/dL (0.2-1.0); CREATINE KINASE, TOTAL 70 U/L (26-192); TOTAL PROTEIN 8.4 g/dL (6.4-8.2)
[2018-08-13] MEDS: METHADONE 5 MG TABLET PO SCH ×3 (07:52→20:02)
[2018-08-13 08:06] VITALS: BP 121/71
[2018-08-13 12:50] VITALS: BP 133/81
[2018-08-13] MEDS: SODIUM CHLORIDE 0.9% IV SCH (13:31)
[2018-08-13] MEDS: ORAJEL 7GM TUBE MM PRN (13:31)
[2018-08-13] MEDS: DAPTOMYCIN IV SCH (13:31)
[2018-08-13 18:19] VITALS: BP 123/77
[2018-08-13] MEDS: TEMAZEPAM 15 MG CAPSULE PO PRN (20:02)
[2018-08-14 00:18] VITALS: BP 137/80
[2018-08-14] MEDS: HEPARIN 5,000 UNITS/ML, 1ML SQ SCH ×2 (00:41→13:00)
[2018-08-14] MEDS: ACETAMINOPHEN 325 MG TABLET PO SCH ×4 (01:56→20:27)
[2018-08-14] MEDS: PREGABALIN 25 MG CAPSULE PO PRN (01:56)
[2018-08-14 07:26] VITALS: BP 125/71
[2018-08-14] MEDS: METHADONE 5 MG TABLET PO SCH ×3 (08:09→20:27)
[2018-08-14 14:04] VITALS: BP 114/65
[2018-08-14] MEDS: DAPTOMYCIN IV SCH (14:52)
[2018-08-14] MEDS: SODIUM CHLORIDE 0.9% IV SCH (14:52)
[2018-08-14 18:31] VITALS: BP 121/71
[2018-08-14] MEDS: TEMAZEPAM 15 MG CAPSULE PO PRN (20:27)
[2018-08-14] MEDS: DIPHENHYDRAMINE 25 MG CAPSULE PO PRN (20:28)
[2018-08-15 00:12] VITALS: BP 130/77
[2018-08-15] MEDS: HEPARIN 5,000 UNITS/ML, 1ML SQ SCH ×2 (01:00→13:40)
[2018-08-15] MEDS: PREGABALIN 25 MG CAPSULE PO PRN ×2 (03:11→12:22)
[2018-08-15] MEDS: ACETAMINOPHEN 325 MG TABLET PO SCH ×3 (03:11→15:10)
[2018-08-15 06:56] VITALS: BP 126/71
[2018-08-15] MEDS: METHADONE 5 MG TABLET PO SCH ×2 (09:01→16:34)
[2018-08-15 12:51] VITALS: BP 117/73
[2018-08-15] MEDS ORDERED: SULFAMETH./TRIMETHOPRIM DS 800MG/160MG TABLET PO SCH (13:00)
[2018-08-15] MEDS: DAPTOMYCIN IV SCH (14:26)
[2018-08-15] MEDS: SODIUM CHLORIDE 0.9% IV SCH (14:26)
[2018-08-15] MEDS ORDERED: METH-356 PO (15:18)
[2018-08-15] MEDS ORDERED: CELE100C PO (15:18)
[2018-08-15] MEDS ORDERED: SULF-169 PO (15:18)
[2018-08-15] MEDS ORDERED: GABA300C10 PO (15:31)
== END 2018-08-15 18:05 | disposition home or self-care (01) | DRG 853 ==
LOC: ED 21:16 → EDIP 22:07 → 3NE 23:28
PROVIDERS: ADMIT Internal Medicine; ATTEND Internal Medicine
PROC: 0KB50ZZ Excision of Right Shoulder Muscle, Open Approach (ICD-10-PCS; principal; 2018-08-03 15:30)
DX: A41.9 Sepsis, unspecified organism (principal); E43 Unspecified severe protein-calorie malnutrition; L02.413 Cutaneous abscess of right upper limb; F11.23 Opioid dependence with withdrawal; E27.40 Unspecified adrenocortical insufficiency; N76.4 Abscess of vulva; Z68.1 Body mass index [BMI] 19.9 or less, adult; F12.90 Cannabis use, unspecified, uncomplicated; F17.210 Nicotine dependence, cigarettes, uncomplicated; G54.6 Phantom limb syndrome with pain; B95.62 Methicillin resistant Staphylococcus aureus infection as the cause of diseases classified elsewhere; B18.2 Chronic viral hepatitis C; L29.9 Pruritus, unspecified; L73.1 Pseudofolliculitis barbae; L73.9 Follicular disorder, unspecified; N76.0 Acute vaginitis; Z59.0 Homelessness; Z87.39 Personal history of other diseases of the musculoskeletal system and connective tissue; Z88.1 Allergy status to other antibiotic agents; Z89.511 Acquired absence of right leg below knee; Z88.0 Allergy status to penicillin
CPT/HCPCS: 36415; 80048; 80053; 81003; 81025; 82040; 82550; 83605; 85025; 85651; 86140; 86480; 86592; 86704; 86706; 87040; 87070; 87075; 87077; 87147; 87186; 87205; 87340; 87491; 87591; 87806; 93005; 99285; G0378; J0696; J0878; J1170; J2250; J2405; J2704; J3010; J3370; Q9967; G0475; J7050; Q0163

== ENCOUNTER 2018-09-11 20:45 | Inpatient (IN) | payer MEDICAID ==
[~2018-09-11] VITALS: Ht 170.2 cm; Wt 65.3 kg
[~2018-09-11 20:45] MED LIST changes: +CELE100C PO; +GABA300C10 PO; -METH-356 PO; +METH10TA2 PO; +SULF-169 PO
--- NOTE | 2018-09-11 21:22 | NUR ---
PT HERE FOR LEFT SHOULDER PAIN THAT STARTED AFTER INJECTING HEROIN 1 WEEK AGO. PT HAS HX OF NECROTIZING FACIAITIS. RN AT BEDSIDE TO PLACE US IV.
[2018-09-11] MEDS ORDERED: SODIUM CHLORIDE 0.9% 1,000ML IVBOLUS ONE (21:30)
[2018-09-11] MEDS ORDERED: KETOROLAC 30 MG/1 ML IVPush ONE (21:30)
[2018-09-11] MEDS ORDERED: CLINDAMYCIN PMX 900MG/50ML 50 ML IVPB ONE (21:30)
[2018-09-11] MEDS ORDERED: VANCOMYCIN PER PHARMACY MC ONE (21:30)
[2018-09-11] MEDS ORDERED: VANCOMYCIN PMX 1GM/200ML 200 ML IV ONE (21:30)
[2018-09-11] MEDS ORDERED: LEVOFLOXACIN/PMX 750MG/150ML 150 ML IVPB ONE (21:30)
[2018-09-11 22:04] LABS: BASOPHILS # (AUTO) 0.11 x10^3/uL (0-0.1); BASOPHILS % (AUTO) 1 % (0-1); EOSINOPHILS % (AUTO) 1 % (1-7); LYMPHOCYTES % (AUTO) 14 % (22-44); MD NO; MEAN CORPUSCULAR HGB CONC 33.8 g/dL (32.4-35.8); MEAN CORPUSCULAR VOLUME 79.7 fL (80-100); MEAN PLATELET VOLUME 8.2 fL (7.4-10.4); MONOCYTES # (AUTO) 1.18 x10^3/uL (0.2-0.8); MONOCYTES % (AUTO) 7 % (2-9); NEUTROPHILS # (AUTO) 13.49 x10^3/uL (1.8-6.8); NEUTROPHILS % (AUTO) 78 % (42-75); PLATELET COUNT 348 x10^3/uL (130-400); RED BLOOD COUNT 4.92 x10^6/uL (3.82-5.3); RED CELL DISTRIBUTION WIDTH 15.9 % (9.6-15.2)
[2018-09-11 22:15] LABS: ALANINE AMINOTRANSFERASE 23 U/L (12-78); ALBUMIN 3.4 g/dL (3.4-5.0); ANION GAP 7 mmol/L (5-15); CHLORIDE 108 mmol/L (98-107)
[2018-09-11 22:17] LABS: ALKALINE PHOSPHATASE 135 U/L (45-117); BILIRUBIN,TOTAL 0.4 mg/dL (0.2-1.0); TOTAL PROTEIN 8.3 g/dL (6.4-8.2)
[2018-09-11] MEDS ORDERED: KETOROLAC 30 MG/1 ML ONE (22:20)
[2018-09-11] MEDS ORDERED: CLINDAMYCIN PMX 900MG/50ML 50 ML ONE (22:20)
--- NOTE | 2018-09-11 22:30 | NUR ---
PT MEDICATED FOR PAIN. PT TO CT. FLUIDS RUNNING.
[2018-09-11] MEDS ORDERED: OMNIPAQUE 350 MG/ML, 100ML BOTTLE ONE (22:41)
--- NOTE | 2018-09-11 23:40 | NUR ---
ABX RUNNING. VSS. CALL LIGHT IN REACH
[2018-09-11] MEDS ORDERED: LEVOFLOXACIN/PMX 750MG/150ML 150 ML ONE (23:59)
--- NOTE | 2018-09-12 00:29 | NUR ---
PIV INFILTRATED. RUSSELL [facility] ATTEMPTING NEW US PIV. REPORT TO FLOOR.
[2018-09-12] MEDS ORDERED: KETOROLAC 30 MG/1 ML IM PRN (01:30)
[2018-09-12] MEDS: METHADONE 5 MG TABLET PO SCH ×4 (01:30→20:50)
[2018-09-12] MEDS ORDERED: VANCOMYCIN PER PHARMACY MC PRN (01:30)
[2018-09-12] MEDS ORDERED: PHARMACOKINETIC MONITORING MC PRN (02:00)
[2018-09-12] MEDS ORDERED: PHARMACOKINETIC CONSULTATION MC ONE (02:00)
[2018-09-12] MEDS: VANCOMYCIN PMX 1GM/200ML 200 ML IV SCH ×3 (02:14→19:28)
[2018-09-12] MEDS: morphine SULFATE 10 MG/ML, 1ML IVPush PRN ×4 (02:14→20:52)
[2018-09-12 02:56] VITALS: BP 100/59
[2018-09-12 07:17] VITALS: BP 98/55
[2018-09-12 13:30] VITALS: BP 129/64
[2018-09-12] MEDS ORDERED: MIDAZOLAM 1 MG/ML, 2ML ONE ×2 (14:04→14:47)
[2018-09-12] MEDS ORDERED: FENTANYL PF 250 MCG/5ML ONE ×2 (14:04→14:44)
[2018-09-12] MEDS ORDERED: SUCCINYLCHOLINE 20 MG/ML, 10ML ONE (14:04)
[2018-09-12] MEDS ORDERED: LIDOCAINE-MPF 2% ,5ML ONE (14:05)
[2018-09-12] MEDS ORDERED: PROPOFOL 10 MG/ML, 20ML ONE (14:05)
[2018-09-12] MEDS ORDERED: FENTANYL PF 100 MCG/2ML ONE (14:47)
[2018-09-12] MEDS ORDERED: HYDROmorphone 2 MG/ML, 1ML ONE ×2 (14:47→14:48)
[2018-09-12] MEDS ORDERED: OXYcodone 5 MG/5 ML ORAL.SOL UDC ONE (14:48)
[2018-09-12] MEDS: HYDROmorphone 2 MG/ML, 1ML IVPush PRN ×2 (15:05→15:18)
[2018-09-12] MEDS ORDERED: OXYcodone 5 MG/5 ML ORAL.SOL UDC PO PRN (15:30)
[2018-09-12] MEDS ORDERED: MIDAZOLAM 1 MG/ML, 2ML IV PRN (15:30)
[2018-09-12] MEDS ORDERED: FENTANYL PF 100 MCG/2ML IV PRN (15:30)
[2018-09-12] MEDS ORDERED: PROMETHAZINE 25 MG/ML, 1ML IV PRN (15:30)
[2018-09-12] MEDS ORDERED: HALOPERIDOL 5 MG/ML IV PRN (15:30)
[2018-09-12] MEDS ORDERED: MEPERIDINE/PF 25MG/0.5ML IVPush PRN (15:30)
[2018-09-12] MEDS: CLINDAMYCIN PMX 900MG/50ML 50 ML IV SCH ×2 (15:56→20:50)
[2018-09-12] MEDS: PREGABALIN 25 MG CAPSULE PO SCH ×2 (16:21→20:48)
[2018-09-12 19:45] VITALS: BP 114/70
[2018-09-12] MEDS: ACETAMINOPHEN 325 MG TABLET PO PRN (20:09)
[2018-09-12] MEDS: TRAZODONE 50MG TABLET PO PRN (20:50)
[2018-09-13 01:07] VITALS: BP 97/62
[2018-09-13] MEDS: morphine SULFATE 10 MG/ML, 1ML IVPush PRN ×2 (03:49→20:31)
[2018-09-13 05:09] LABS: BASOPHILS # (AUTO) 0.06 x10^3/uL (0-0.1); BASOPHILS % (AUTO) 1 % (0-1); EOSINOPHILS # (AUTO) 0.23 x10^3/uL (0-0.4); EOSINOPHILS % (AUTO) 3 % (1-7); LYMPHOCYTES # (AUTO) 2.42 x10^3/uL (1-3.4); LYMPHOCYTES % (AUTO) 26 % (22-44); MD NO; MEAN CORPUSCULAR HEMOGLOBIN 26.3 pg (27.0-34.8); MEAN CORPUSCULAR HGB CONC 32.7 g/dL (32.4-35.8); MEAN CORPUSCULAR VOLUME 80.6 fL (80-100); MEAN PLATELET VOLUME 7.9 fL (7.4-10.4); MONOCYTES # (AUTO) 0.82 x10^3/uL (0.2-0.8); MONOCYTES % (AUTO) 9 % (2-9); NEUTROPHILS # (AUTO) 5.75 x10^3/uL (1.8-6.8); NEUTROPHILS % (AUTO) 62 % (42-75); PLATELET COUNT 331 x10^3/uL (130-400); RED BLOOD COUNT 4.25 x10^6/uL (3.82-5.3)
[2018-09-13 05:13] LABS: ANION GAP 9 mmol/L (5-15); CALCIUM 8.9 mg/dL (8.5-10.1); CHLORIDE 108 mmol/L (98-107)
[2018-09-13 05:19] LABS: ALANINE AMINOTRANSFERASE 17 U/L (12-78); ALKALINE PHOSPHATASE 105 U/L (45-117); BILIRUBIN,TOTAL 0.4 mg/dL (0.2-1.0); CREATININE 0.65 mg/dL (0.55-1.02); TOTAL PROTEIN 7.5 g/dL (6.4-8.2)
[2018-09-13] MEDS: CLINDAMYCIN PMX 900MG/50ML 50 ML IV SCH (05:29)
[2018-09-13 07:09] VITALS: BP 113/68
[2018-09-13] MEDS: VANCOMYCIN PMX 1GM/200ML 200 ML IV SCH ×2 (07:18→20:31)
[2018-09-13] MEDS: PREGABALIN 25 MG CAPSULE PO SCH ×3 (10:00→21:44)
[2018-09-13] MEDS: METHADONE 5 MG TABLET PO SCH ×3 (10:01→21:49)
[2018-09-13 13:25] VITALS: BP 133/79
[2018-09-13] MEDS ORDERED: ORAJEL 7GM TUBE MM PRN (18:30)
[2018-09-13] MEDS ORDERED: OXYcodone/APAP 5/325MG TABLET PO PRN (18:30)
[2018-09-13] MEDS ORDERED: OXYcodone IR 5MG TABLET PO PRN (18:30)
[2018-09-13] MEDS ORDERED: OXYcodone IR 5MG TABLET ONE (18:33)
[2018-09-13] MEDS: ACETAMINOPHEN 325 MG TABLET PO PRN (18:40)
[2018-09-13 19:48] VITALS: BP 117/64
[2018-09-13] MEDS: TRAZODONE 50MG TABLET PO PRN (21:57)
[2018-09-14 01:07] VITALS: BP 97/53
[2018-09-14] MEDS: morphine SULFATE 10 MG/ML, 1ML IVPush PRN ×4 (06:40→18:38)
[2018-09-14 06:45] LABS: HCT (SEDRATE) 35.8 % (34.6-47.8)
[2018-09-14 06:59] LABS: VANCOMYCIN,TROUGH 10.6 mcg/mL (5.0-10.0)
[2018-09-14 07:04] LABS: C-REACTIVE PROTEIN, QUANT 1.4 mg/dL (0.02-0.49)
[2018-09-14 07:21] VITALS: BP 91/56
[2018-09-14] MEDS: METHADONE 5 MG TABLET PO SCH ×3 (08:11→21:51)
[2018-09-14] MEDS: VANCOMYCIN PMX 1GM/200ML 200 ML IV SCH (08:11)
[2018-09-14] MEDS: PREGABALIN 25 MG CAPSULE PO SCH ×3 (08:11→21:51)
[2018-09-14 13:08] VITALS: BP 102/57
[2018-09-14 19:29] VITALS: BP 135/76
[2018-09-14] MEDS: CEFTRIAXONE PMX 2GM/50ML 50 ML IV SCH (21:53)
[2018-09-14] MEDS: TRAZODONE 50MG TABLET PO PRN (22:21)
[2018-09-15] MEDS: morphine SULFATE 10 MG/ML, 1ML IVPush PRN ×4 (00:02→19:07)
[2018-09-15 01:47] VITALS: BP 109/64
[2018-09-15 05:17] LABS: BASOPHILS # (AUTO) 0.07 x10^3/uL (0-0.1); BASOPHILS % (AUTO) 1 % (0-1); EOSINOPHILS # (AUTO) 0.37 x10^3/uL (0-0.4); EOSINOPHILS % (AUTO) 4 % (1-7); LYMPHOCYTES # (AUTO) 2.29 x10^3/uL (1-3.4); LYMPHOCYTES % (AUTO) 26 % (22-44); MD NO; MEAN CORPUSCULAR HEMOGLOBIN 25.9 pg (27.0-34.8); MEAN CORPUSCULAR HGB CONC 32.4 g/dL (32.4-35.8); MEAN PLATELET VOLUME 7.9 fL (7.4-10.4); MONOCYTES % (AUTO) 8 % (2-9); NEUTROPHILS # (AUTO) 5.25 x10^3/uL (1.8-6.8); NEUTROPHILS % (AUTO) 61 % (42-75); PLATELET COUNT 344 x10^3/uL (130-400); RED BLOOD COUNT 4.23 x10^6/uL (3.82-5.3); RED CELL DISTRIBUTION WIDTH 15.4 % (9.6-15.2)
[2018-09-15 05:27] LABS: ANION GAP 7 mmol/L (5-15); CALCIUM 9.2 mg/dL (8.5-10.1); CHLORIDE 112 mmol/L (98-107); CREATININE 0.57 mg/dL (0.55-1.02)
[2018-09-15 06:30] VITALS: BP 102/62
[2018-09-15] MEDS: PREGABALIN 25 MG CAPSULE PO SCH ×3 (09:10→22:13)
[2018-09-15] MEDS: METHADONE 5 MG TABLET PO SCH ×3 (09:10→22:13)
[2018-09-15 13:59] VITALS: BP 105/67
[2018-09-15 19:04] VITALS: BP 118/74
[2018-09-15] MEDS: CEFTRIAXONE PMX 2GM/50ML 50 ML IV SCH (21:18)
[2018-09-15] MEDS: TRAZODONE 50MG TABLET PO PRN (21:26)
[2018-09-16 01:17] VITALS: BP 115/72
[2018-09-16] MEDS: morphine SULFATE 10 MG/ML, 1ML IVPush PRN ×3 (04:07→21:00)
[2018-09-16 06:45] VITALS: BP 100/54
[2018-09-16] MEDS: PREGABALIN 25 MG CAPSULE PO SCH ×3 (08:35→21:03)
[2018-09-16] MEDS: METHADONE 5 MG TABLET PO SCH ×3 (08:35→21:03)
[2018-09-16 13:16] VITALS: BP 125/79
[2018-09-16] MEDS ORDERED: MIDAZOLAM 1 MG/ML, 2ML ONE ×2 (13:35→14:18)
[2018-09-16] MEDS ORDERED: FENTANYL PF 250 MCG/5ML ONE ×2 (13:35→13:53)
[2018-09-16] MEDS ORDERED: FENTANYL PF 100 MCG/2ML IV PRN (14:00)
[2018-09-16] MEDS ORDERED: ACETAMINOPHEN 325 MG TABLET PO PRN (14:00)
[2018-09-16] MEDS ORDERED: ONDANSETRON 2MG/ML, 2ML IV PRN (14:00)
[2018-09-16] MEDS ORDERED: OXYcodone 5 MG/5 ML ORAL.SOL UDC PO PRN (14:00)
[2018-09-16] MEDS ORDERED: HALOPERIDOL 5 MG/ML IV PRN (14:00)
[2018-09-16] MEDS ORDERED: MEPERIDINE/PF 25MG/0.5ML IVPush PRN (14:00)
[2018-09-16] MEDS ORDERED: METOCLOPRAMIDE 5 MG/ML, 2ML IV PRN (14:00)
[2018-09-16] MEDS ORDERED: LORazepam 2 MG/ML, 1ML IVPush PRN (14:00)
[2018-09-16] MEDS ORDERED: hydrALAzine 20 MG/ML, 1ML IV PRN (14:00)
[2018-09-16] MEDS ORDERED: LABETALOL 5MG/ML, 20ML IV PRN (14:00)
[2018-09-16] MEDS ORDERED: FENTANYL PF 100 MCG/2ML ONE (14:18)
[2018-09-16] MEDS ORDERED: HYDROmorphone 2 MG/ML, 1ML ONE (14:18)
[2018-09-16] MEDS: HYDROmorphone 2 MG/ML, 1ML IVPush PRN ×2 (14:32→14:45)
[2018-09-16] MEDS ORDERED: OXYcodone 5 MG/5 ML ORAL.SOL UDC ONE (14:41)
[2018-09-16] MEDS ORDERED: MIDAZOLAM 1 MG/ML, 2ML IV PRN (15:00)
[2018-09-16] MEDS: KETOROLAC 30 MG/1 ML IVPush PRN (15:28)
[2018-09-16 19:48] VITALS: BP 118/69
[2018-09-16] MEDS: CEFTRIAXONE PMX 2GM/50ML 50 ML IV SCH (21:03)
[2018-09-16] MEDS: TRAZODONE 50MG TABLET PO PRN (21:04)
[2018-09-17] MEDS: morphine SULFATE 10 MG/ML, 1ML IVPush PRN ×5 (01:26→22:06)
[2018-09-17] MEDS: KETOROLAC 30 MG/1 ML IVPush PRN (01:27)
[2018-09-17 01:35] VITALS: BP 108/64
[2018-09-17 05:18] LABS: BASOPHILS # (AUTO) 0.06 x10^3/uL (0-0.1); BASOPHILS % (AUTO) 1 % (0-1); EOSINOPHILS # (AUTO) 0.33 x10^3/uL (0-0.4); EOSINOPHILS % (AUTO) 4 % (1-7); LYMPHOCYTES # (AUTO) 2.65 x10^3/uL (1-3.4); LYMPHOCYTES % (AUTO) 31 % (22-44); MD NO; MEAN CORPUSCULAR HEMOGLOBIN 26.6 pg (27.0-34.8); MEAN CORPUSCULAR HGB CONC 33.6 g/dL (32.4-35.8); MEAN CORPUSCULAR VOLUME 79.3 fL (80-100); MONOCYTES # (AUTO) 0.58 x10^3/uL (0.2-0.8); MONOCYTES % (AUTO) 7 % (2-9); NEUTROPHILS # (AUTO) 4.88 x10^3/uL (1.8-6.8); NEUTROPHILS % (AUTO) 57 % (42-75); PLATELET COUNT 363 x10^3/uL (130-400); RED BLOOD COUNT 4.08 x10^6/uL (3.82-5.3); RED CELL DISTRIBUTION WIDTH 15.7 % (9.6-15.2)
[2018-09-17 05:21] LABS: HCT (SEDRATE) 32.3 % (34.6-47.8)
[2018-09-17 05:29] LABS: ALBUMIN 2.8 g/dL (3.4-5.0); ANION GAP 8 mmol/L (5-15); CALCIUM 8.6 mg/dL (8.5-10.1); CHLORIDE 109 mmol/L (98-107)
[2018-09-17 05:33] LABS: ALANINE AMINOTRANSFERASE 18 U/L (12-78); ALKALINE PHOSPHATASE 99 U/L (45-117); BILIRUBIN,TOTAL 0.2 mg/dL (0.2-1.0); CREATININE 0.63 mg/dL (0.55-1.02); TOTAL PROTEIN 6.9 g/dL (6.4-8.2)
[2018-09-17 06:37] VITALS: BP 98/61
[2018-09-17] MEDS: METHADONE 5 MG TABLET PO SCH ×3 (08:52→20:17)
[2018-09-17] MEDS: PREGABALIN 25 MG CAPSULE PO SCH ×3 (08:52→20:17)
[2018-09-17 12:02] VITALS: BP 98/62
[2018-09-17] MEDS: SERTRALINE 50MG TABLET PO SCH (15:47)
[2018-09-17 20:02] VITALS: BP 137/77
[2018-09-17] MEDS: TRAZODONE 100MG TABLET PO SCH (20:17)
[2018-09-17] MEDS: CEFTRIAXONE PMX 2GM/50ML 50 ML IV SCH (20:17)
[2018-09-17] MEDS: metroNIDAZOLE 500 MG TABLET PO SCH (22:05)
[2018-09-17] MEDS: DAPTOMYCIN 260 MG in SODIUM CHLORIDE 0.9% 100 ML IV SCH (22:05)
[2018-09-18 02:52] VITALS: BP 108/65
[2018-09-18] MEDS: morphine SULFATE 10 MG/ML, 1ML IVPush PRN ×4 (05:54→23:30)
[2018-09-18] MEDS: metroNIDAZOLE 500 MG TABLET PO SCH ×3 (05:54→23:30)
[2018-09-18 06:58] VITALS: BP 99/52
[2018-09-18 07:38] LABS: BASOPHILS # (AUTO) 0.06 x10^3/uL (0-0.1); BASOPHILS % (AUTO) 1 % (0-1); EOSINOPHILS # (AUTO) 0.33 x10^3/uL (0-0.4); EOSINOPHILS % (AUTO) 5 % (1-7); LYMPHOCYTES # (AUTO) 2.19 x10^3/uL (1-3.4); LYMPHOCYTES % (AUTO) 31 % (22-44); MD NO; MEAN CORPUSCULAR HEMOGLOBIN 25.7 pg (27.0-34.8); MEAN CORPUSCULAR HGB CONC 32.3 g/dL (32.4-35.8); MEAN CORPUSCULAR VOLUME 79.6 fL (80-100); MEAN PLATELET VOLUME 7.8 fL (7.4-10.4); MONOCYTES # (AUTO) 0.59 x10^3/uL (0.2-0.8); MONOCYTES % (AUTO) 8 % (2-9); NEUTROPHILS # (AUTO) 3.97 x10^3/uL (1.8-6.8); NEUTROPHILS % (AUTO) 56 % (42-75); PLATELET COUNT 366 x10^3/uL (130-400); RED BLOOD COUNT 4.19 x10^6/uL (3.82-5.3)
[2018-09-18 07:40] LABS: ANION GAP 3 mmol/L (5-15); CALCIUM 9.2 mg/dL (8.5-10.1); CHLORIDE 109 mmol/L (98-107); CREATININE 0.65 mg/dL (0.55-1.02)
[2018-09-18] MEDS: SERTRALINE 50MG TABLET PO SCH (08:54)
[2018-09-18] MEDS: PREGABALIN 25 MG CAPSULE PO SCH ×3 (08:54→21:30)
[2018-09-18] MEDS: METHADONE 5 MG TABLET PO SCH ×3 (08:54→21:30)
[2018-09-18 12:47] VITALS: BP 118/74
[2018-09-18] MEDS: DAPTOMYCIN 260 MG in SODIUM CHLORIDE 0.9% 100 ML IV SCH (21:30)
[2018-09-18] MEDS: TRAZODONE 100MG TABLET PO SCH (21:30)
[2018-09-18 21:52] VITALS: BP 134/75
[2018-09-19 00:54] VITALS: BP 122/65
[2018-09-19 08:15] VITALS: BP 95/54
[2018-09-19] MEDS: SERTRALINE 50MG TABLET PO SCH (08:20)
[2018-09-19] MEDS: metroNIDAZOLE 500 MG TABLET PO SCH ×2 (08:20→16:09)
[2018-09-19] MEDS: PREGABALIN 25 MG CAPSULE PO SCH ×3 (08:20→19:55)
[2018-09-19] MEDS: METHADONE 5 MG TABLET PO SCH ×3 (08:21→19:55)
[2018-09-19] MEDS: morphine SULFATE 10 MG/ML, 1ML IVPush PRN ×3 (10:38→22:29)
[2018-09-19 14:39] VITALS: BP 120/63
[2018-09-19] MEDS: TRAZODONE 100MG TABLET PO SCH (19:55)
[2018-09-19 19:59] VITALS: BP 120/62
[2018-09-19] MEDS: DAPTOMYCIN 260 MG in SODIUM CHLORIDE 0.9% 100 ML IV SCH (22:29)
[2018-09-20 01:16] VITALS: BP 100/62
[2018-09-20] MEDS: metroNIDAZOLE 500 MG TABLET PO SCH ×2 (01:19→09:20)
[2018-09-20] MEDS: morphine SULFATE 10 MG/ML, 1ML IVPush PRN ×4 (01:55→22:59)
[2018-09-20 05:52] LABS: BASOPHILS # (AUTO) 0.03 x10^3/uL (0-0.1); BASOPHILS % (AUTO) 0 % (0-1); EOSINOPHILS # (AUTO) 0.36 x10^3/uL (0-0.4); EOSINOPHILS % (AUTO) 4 % (1-7); LYMPHOCYTES # (AUTO) 2.05 x10^3/uL (1-3.4); LYMPHOCYTES % (AUTO) 23 % (22-44); MD NO; MEAN CORPUSCULAR HEMOGLOBIN 27.2 pg (27.0-34.8); MEAN CORPUSCULAR HGB CONC 34.2 g/dL (32.4-35.8); MEAN CORPUSCULAR VOLUME 79.6 fL (80-100); MEAN PLATELET VOLUME 7.7 fL (7.4-10.4); MONOCYTES # (AUTO) 0.77 x10^3/uL (0.2-0.8); MONOCYTES % (AUTO) 9 % (2-9); NEUTROPHILS % (AUTO) 64 % (42-75); PLATELET COUNT 322 x10^3/uL (130-400); RED BLOOD COUNT 4.03 x10^6/uL (3.82-5.3); RED CELL DISTRIBUTION WIDTH 16.2 % (9.6-15.2)
[2018-09-20 06:05] LABS: CHLORIDE 110 mmol/L (98-107)
[2018-09-20 06:19] LABS: ALANINE AMINOTRANSFERASE 26 U/L (12-78); ALBUMIN 2.9 g/dL (3.4-5.0); ALKALINE PHOSPHATASE 96 U/L (45-117); ANION GAP 7 mmol/L (5-15); BILIRUBIN,TOTAL 0.3 mg/dL (0.2-1.0); CALCIUM 8.8 mg/dL (8.5-10.1); CREATININE 0.64 mg/dL (0.55-1.02); TOTAL PROTEIN 6.8 g/dL (6.4-8.2)
[2018-09-20 08:11] VITALS: BP 109/61
[2018-09-20] MEDS: PREGABALIN 25 MG CAPSULE PO SCH ×3 (09:20→21:03)
[2018-09-20] MEDS: SERTRALINE 50MG TABLET PO SCH (09:21)
[2018-09-20] MEDS: METHADONE 5 MG TABLET PO SCH ×3 (09:21→21:03)
[2018-09-20 14:57] VITALS: BP 124/62
[2018-09-20] MEDS ORDERED: DIPHENHYDRAMINE 25 MG CAPSULE PO PRN (15:30)
[2018-09-20] MEDS: CLINDAMYCIN 300 MG CAPSULE PO SCH (17:23)
[2018-09-20 19:24] VITALS: BP 130/79
[2018-09-20] MEDS: TRAZODONE 100MG TABLET PO SCH (21:03)
[2018-09-20] MEDS: DAPTOMYCIN 260 MG in SODIUM CHLORIDE 0.9% 100 ML IV SCH (22:59)
[2018-09-21] MEDS: CLINDAMYCIN 300 MG CAPSULE PO SCH ×4 (01:17→23:17)
[2018-09-21 01:23] VITALS: BP 156/71
[2018-09-21 08:29] VITALS: BP 118/53
[2018-09-21] MEDS: PREGABALIN 25 MG CAPSULE PO SCH ×3 (08:47→20:58)
[2018-09-21] MEDS: SERTRALINE 50MG TABLET PO SCH (08:47)
[2018-09-21] MEDS: METHADONE 5 MG TABLET PO SCH ×3 (08:47→20:58)
[2018-09-21] MEDS: morphine SULFATE 10 MG/ML, 1ML IVPush PRN ×3 (10:35→21:11)
[2018-09-21 14:07] VITALS: BP 143/73
[2018-09-21 20:53] VITALS: BP 128/76
[2018-09-21] MEDS: TRAZODONE 100MG TABLET PO SCH (20:58)
[2018-09-21] MEDS: DAPTOMYCIN 260 MG in SODIUM CHLORIDE 0.9% 100 ML IV SCH (23:17)
[2018-09-22 01:47] VITALS: BP 135/76
[2018-09-22] MEDS ORDERED: METHADONE 10 MG TABLET ONE (06:32)
[2018-09-22] MEDS: CLINDAMYCIN 300 MG CAPSULE PO SCH ×3 (06:37→22:12)
[2018-09-22] MEDS: METHADONE 5 MG TABLET PO SCH ×3 (06:37→20:24)
[2018-09-22] MEDS: morphine SULFATE 10 MG/ML, 1ML IVPush PRN ×3 (06:43→20:23)
[2018-09-22 07:12] VITALS: BP 133/79
[2018-09-22] MEDS: PREGABALIN 25 MG CAPSULE PO SCH ×3 (09:01→20:24)
[2018-09-22] MEDS: SERTRALINE 50MG TABLET PO SCH (09:01)
[2018-09-22] MEDS ORDERED: MORPHINE SULFATE 4 MG/ML, 1ML ONE (13:33)
[2018-09-22 15:36] VITALS: BP 126/70
[2018-09-22 19:40] VITALS: BP 117/68
[2018-09-22] MEDS: TRAZODONE 100MG TABLET PO SCH (20:24)
[2018-09-22] MEDS: DAPTOMYCIN 260 MG in SODIUM CHLORIDE 0.9% 100 ML IV SCH (22:11)
[2018-09-23 02:13] VITALS: BP 104/61
[2018-09-23] MEDS: morphine SULFATE 10 MG/ML, 1ML IVPush PRN ×3 (05:55→23:00)
[2018-09-23 06:57] VITALS: BP 115/72
[2018-09-23] MEDS: CLINDAMYCIN 300 MG CAPSULE PO SCH ×2 (09:13→17:29)
[2018-09-23] MEDS: METHADONE 5 MG TABLET PO SCH ×3 (09:13→20:09)
[2018-09-23] MEDS: PREGABALIN 25 MG CAPSULE PO SCH ×3 (09:14→20:09)
[2018-09-23] MEDS: SERTRALINE 50MG TABLET PO SCH (09:16)
[2018-09-23 14:40] VITALS: BP 152/74
[2018-09-23 19:35] VITALS: BP 106/69
[2018-09-23] MEDS: TRAZODONE 100MG TABLET PO SCH (20:09)
[2018-09-23] MEDS: DAPTOMYCIN 260 MG in SODIUM CHLORIDE 0.9% 100 ML IV SCH (23:00)
[2018-09-24 00:55] VITALS: BP 116/68
[2018-09-24] MEDS: CLINDAMYCIN 300 MG CAPSULE PO SCH ×2 (01:42→08:46)
[2018-09-24 06:09] LABS: BASOPHILS # (AUTO) 0.07 x10^3/uL (0-0.1); BASOPHILS % (AUTO) 1 % (0-1); EOSINOPHILS # (AUTO) 0.29 x10^3/uL (0-0.4); EOSINOPHILS % (AUTO) 3 % (1-7); LYMPHOCYTES # (AUTO) 1.96 x10^3/uL (1-3.4); LYMPHOCYTES % (AUTO) 19 % (22-44); MD NO; MEAN CORPUSCULAR HEMOGLOBIN 26.8 pg (27.0-34.8); MEAN CORPUSCULAR HGB CONC 33.6 g/dL (32.4-35.8); MEAN CORPUSCULAR VOLUME 79.7 fL (80-100); MEAN PLATELET VOLUME 7.7 fL (7.4-10.4); MONOCYTES # (AUTO) 0.74 x10^3/uL (0.2-0.8); MONOCYTES % (AUTO) 7 % (2-9); NEUTROPHILS # (AUTO) 7.07 x10^3/uL (1.8-6.8); NEUTROPHILS % (AUTO) 70 % (42-75); PLATELET COUNT 326 x10^3/uL (130-400); RED BLOOD COUNT 4.29 x10^6/uL (3.82-5.3); RED CELL DISTRIBUTION WIDTH 16.9 % (9.6-15.2)
[2018-09-24 06:10] LABS: HCT (SEDRATE) 34.6 % (34.6-47.8)
[2018-09-24 06:21] LABS: ALBUMIN 3.1 g/dL (3.4-5.0); ANION GAP 5 mmol/L (5-15); CALCIUM 9.1 mg/dL (8.5-10.1); CHLORIDE 112 mmol/L (98-107)
[2018-09-24 06:29] LABS: ALANINE AMINOTRANSFERASE 21 U/L (12-78); ALKALINE PHOSPHATASE 109 U/L (45-117); BILIRUBIN,TOTAL 0.4 mg/dL (0.2-1.0); CREATINE KINASE, TOTAL 131 U/L (26-192); CREATININE 0.74 mg/dL (0.55-1.02); TOTAL PROTEIN 7.5 g/dL (6.4-8.2)
[2018-09-24] MEDS: morphine SULFATE 10 MG/ML, 1ML IVPush PRN ×2 (06:32→20:14)
[2018-09-24 07:07] VITALS: BP 102/58
[2018-09-24] MEDS: SERTRALINE 50MG TABLET PO SCH (08:46)
[2018-09-24] MEDS: METHADONE 5 MG TABLET PO SCH (08:46)
[2018-09-24] MEDS: PREGABALIN 25 MG CAPSULE PO SCH ×3 (08:46→20:14)
[2018-09-24 12:35] VITALS: BP 110/75
[2018-09-24] MEDS: metroNIDAZOLE 500 MG TABLET PO SCH ×2 (13:49→20:14)
[2018-09-24] MEDS ORDERED: MAALOX/HYOSCYAMINE/LIDOCAINE 45 ML BTL PO PRN (15:30)
[2018-09-24] MEDS: OMEPRAZOLE 20 MG CAPSULE.DR PO SCH ×2 (16:03→22:38)
[2018-09-24] MEDS: METHADONE 10 MG TABLET PO SCH ×2 (16:03→22:38)
[2018-09-24 19:50] VITALS: BP 116/78
[2018-09-24] MEDS: TRAZODONE 100MG TABLET PO SCH (20:14)
[2018-09-24] MEDS: DAPTOMYCIN 260 MG in SODIUM CHLORIDE 0.9% 100 ML IV SCH (22:39)
[2018-09-25 01:01] VITALS: BP 145/83
[2018-09-25 02:35] LABS: CLOSTRIDIUM DIFFICILE ANTIGEN NEGATIVE; CLOSTRIDIUM DIFFICILE TOXIN NEGATIVE (Negative)
[2018-09-25] MEDS: metroNIDAZOLE 500 MG TABLET PO SCH ×3 (05:34→21:17)
[2018-09-25] MEDS: OMEPRAZOLE 20 MG CAPSULE.DR PO SCH ×2 (05:34→16:21)
[2018-09-25] MEDS: morphine SULFATE 10 MG/ML, 1ML IVPush PRN ×2 (05:44→14:57)
[2018-09-25 07:48] VITALS: BP 99/52
[2018-09-25] MEDS: SERTRALINE 50MG TABLET PO SCH (08:37)
[2018-09-25] MEDS: METHADONE 10 MG TABLET PO SCH ×3 (08:37→21:18)
[2018-09-25] MEDS: PREGABALIN 25 MG CAPSULE PO SCH ×3 (08:37→21:18)
[2018-09-25 12:45] VITALS: BP 127/82
[2018-09-25 20:00] VITALS: BP 152/70
[2018-09-25] MEDS: TRAZODONE 100MG TABLET PO SCH (21:17)
[2018-09-25] MEDS: DAPTOMYCIN 260 MG in SODIUM CHLORIDE 0.9% 100 ML IV SCH (22:40)
[2018-09-26 02:00] VITALS: BP 104/64
[2018-09-26] MEDS: metroNIDAZOLE 500 MG TABLET PO SCH ×3 (05:52→21:20)
[2018-09-26] MEDS: OMEPRAZOLE 20 MG CAPSULE.DR PO SCH ×2 (05:53→21:20)
[2018-09-26 05:54] VITALS: BP 130/65
[2018-09-26 07:41] VITALS: BP 114/56
[2018-09-26] MEDS: PREGABALIN 25 MG CAPSULE PO SCH ×3 (08:39→21:20)
[2018-09-26] MEDS: SERTRALINE 50MG TABLET PO SCH (08:40)
[2018-09-26] MEDS: METHADONE 10 MG TABLET PO SCH ×3 (08:40→21:20)
[2018-09-26 14:55] VITALS: BP 118/65
[2018-09-26] MEDS: morphine SULFATE 10 MG/ML, 1ML IVPush PRN (14:59)
[2018-09-26 20:00] VITALS: BP 123/77
[2018-09-26] MEDS: TRAZODONE 100MG TABLET PO SCH (21:21)
[2018-09-26] MEDS: DAPTOMYCIN 260 MG in SODIUM CHLORIDE 0.9% 100 ML IV SCH (22:06)
[2018-09-27 02:00] VITALS: BP 102/61
[2018-09-27] MEDS: metroNIDAZOLE 500 MG TABLET PO SCH ×3 (05:23→20:24)
[2018-09-27] MEDS: OMEPRAZOLE 20 MG CAPSULE.DR PO SCH ×2 (05:23→20:24)
[2018-09-27 07:53] VITALS: BP 98/59
[2018-09-27] MEDS: PREGABALIN 25 MG CAPSULE PO SCH ×3 (09:57→20:24)
[2018-09-27] MEDS: METHADONE 10 MG TABLET PO SCH ×3 (09:57→20:24)
[2018-09-27] MEDS: SERTRALINE 50MG TABLET PO SCH (09:57)
[2018-09-27 13:13] VITALS: BP 114/68
[2018-09-27 20:00] VITALS: BP 117/67
[2018-09-27] MEDS: TRAZODONE 100MG TABLET PO SCH (20:24)
[2018-09-27] MEDS: DAPTOMYCIN 260 MG in SODIUM CHLORIDE 0.9% 100 ML IV SCH (22:55)
[2018-09-28 02:00] VITALS: BP 109/68
[2018-09-28] MEDS: OMEPRAZOLE 20 MG CAPSULE.DR PO SCH ×2 (05:44→21:00)
[2018-09-28] MEDS: metroNIDAZOLE 500 MG TABLET PO SCH ×3 (05:44→21:06)
[2018-09-28 07:19] VITALS: BP 103/66
[2018-09-28] MEDS: SERTRALINE 50MG TABLET PO SCH (11:09)
[2018-09-28] MEDS: PREGABALIN 25 MG CAPSULE PO SCH ×3 (11:10→21:06)
[2018-09-28] MEDS: METHADONE 10 MG TABLET PO SCH ×3 (11:10→21:07)
[2018-09-28 13:25] VITALS: BP 102/64
[2018-09-28] MEDS: morphine SULFATE 10 MG/ML, 1ML IVPush PRN (14:57)
[2018-09-28 19:58] VITALS: BP 108/66
[2018-09-28] MEDS: TRAZODONE 100MG TABLET PO SCH (21:07)
[2018-09-28] MEDS: DAPTOMYCIN 260 MG in SODIUM CHLORIDE 0.9% 100 ML IV SCH (23:17)
[2018-09-29 00:25] VITALS: BP 123/72
[2018-09-29] MEDS: metroNIDAZOLE 500 MG TABLET PO SCH ×3 (05:19→21:15)
[2018-09-29] MEDS: OMEPRAZOLE 20 MG CAPSULE.DR PO SCH (05:19)
[2018-09-29 06:30] VITALS: BP 99/63
[2018-09-29] MEDS: PREGABALIN 25 MG CAPSULE PO SCH ×3 (09:06→21:15)
[2018-09-29] MEDS: METHADONE 10 MG TABLET PO SCH ×3 (09:07→21:15)
[2018-09-29] MEDS: SERTRALINE 50MG TABLET PO SCH (09:07)
[2018-09-29 13:01] VITALS: BP 94/59
[2018-09-29 19:24] VITALS: BP 125/81
[2018-09-29] MEDS: TRAZODONE 100MG TABLET PO SCH (21:15)
[2018-09-29] MEDS: DAPTOMYCIN 260 MG in SODIUM CHLORIDE 0.9% 100 ML IV SCH (23:12)
[2018-09-30 00:35] VITALS: BP 112/67
[2018-09-30] MEDS: metroNIDAZOLE 500 MG TABLET PO SCH ×2 (05:32→13:06)
[2018-09-30] MEDS: OMEPRAZOLE 20 MG CAPSULE.DR PO SCH ×2 (05:32→16:46)
[2018-09-30 08:25] VITALS: BP 143/80
[2018-09-30] MEDS: PREGABALIN 25 MG CAPSULE PO SCH ×2 (09:02→16:46)
[2018-09-30] MEDS: SERTRALINE 50MG TABLET PO SCH (09:02)
[2018-09-30] MEDS: METHADONE 10 MG TABLET PO SCH ×2 (09:02→16:46)
[2018-09-30] MEDS ORDERED: TRAZ-137 PO (14:54)
[2018-09-30] MEDS ORDERED: SERT50TA28 PO (14:54)
[2018-09-30 15:15] VITALS: BP 146/77
[2018-09-30] MEDS ORDERED: METH10TA2 PO (15:35)
[2018-09-30] MEDS ORDERED: NALO0.4D2 SQ (15:35)
[2018-09-30] MEDS: DAPTOMYCIN 260 MG in SODIUM CHLORIDE 0.9% 100 ML IV SCH (16:00)
== END 2018-09-30 18:28 | disposition home or self-care (01) | DRG 854 ==
LOC: ED 21:15 → EDIP 23:57 → 3NE 09-12 01:39
PROVIDERS: ADMIT Internal Medicine; ATTEND Internal Medicine
PROC: 0KB60ZZ Excision of Left Shoulder Muscle, Open Approach (ICD-10-PCS; principal; 2018-09-12 14:30)
PROC: 0KB60ZZ Excision of Left Shoulder Muscle, Open Approach (ICD-10-PCS; 2018-09-16)
DX: A41.9 Sepsis, unspecified organism (principal); E27.40 Unspecified adrenocortical insufficiency; F11.23 Opioid dependence with withdrawal; L02.414 Cutaneous abscess of left upper limb; B18.2 Chronic viral hepatitis C; F17.210 Nicotine dependence, cigarettes, uncomplicated; F32.9 Major depressive disorder, single episode, unspecified; F41.9 Anxiety disorder, unspecified; G54.6 Phantom limb syndrome with pain; I34.1 Nonrheumatic mitral (valve) prolapse; K21.9 Gastro-esophageal reflux disease without esophagitis; K59.09 Other constipation; Z86.14 Personal history of Methicillin resistant Staphylococcus aureus infection; Z87.39 Personal history of other diseases of the musculoskeletal system and connective tissue; Z88.0 Allergy status to penicillin
CPT/HCPCS: 36415; 80048; 80053; 80202; 82550; 83605; 84145; 84702; 85025; 85651; 86140; 87040; 87070; 87075; 87077; 87186; 87205; 87324; 93005; 93306; 96365; 96375; 99291; G0378; J0696; J0878; J1170; J1885; J2250; J2704; J3010; J3370; J3490; Q9967; J0330; J2270; J7030; Q0163

== ENCOUNTER 2018-10-26 18:49 | Inpatient (IN) | payer MEDICAID ==
[~2018-10-26] VITALS: Ht 170.2 cm; Wt 55.9 kg
[~2018-10-26 18:49] MED LIST changes: +NALO0.4D2 SQ; +SERT50TA28 PO; +TRAZ-137 PO
--- NOTE | 2018-10-26 19:19 | NUR ---
NO RESPONSE FROM LOBBY X1
--- NOTE | 2018-10-26 19:46 | NUR ---
NO ANSWER FROM LOBBY X 2
--- NOTE | 2018-10-26 20:12 | NUR ---
PT CALLED TO ROOM, NIL X1 2009
--- NOTE | 2018-10-26 20:27 | NUR ---
NOT IN LOBBY STILL, BATHROOM CHECKED, PT NOT PRESENT
[2018-10-26 21:32] LABS: MEAN CORPUSCULAR HEMOGLOBIN 25.8 pg (27.0-34.8); MEAN CORPUSCULAR HGB CONC 33.2 g/dL (32.4-35.8); MEAN CORPUSCULAR VOLUME 77.8 fL (80-100); MEAN PLATELET VOLUME 7.3 fL (7.4-10.4); PLATELET COUNT 615 x10^3/uL (130-400); RED BLOOD COUNT 4.41 x10^6/uL (3.82-5.3); RED CELL DISTRIBUTION WIDTH 17.7 % (9.6-15.2)
[2018-10-26 21:37] LABS: ALANINE AMINOTRANSFERASE 17 U/L (12-78); ANION GAP 7 mmol/L (5-15); CALCIUM 8.9 mg/dL (8.5-10.1); CHLORIDE 103 mmol/L (98-107); CREATININE 0.54 mg/dL (0.55-1.02)
[2018-10-26 21:39] LABS: ALKALINE PHOSPHATASE 196 U/L (45-117); BILIRUBIN,TOTAL 0.4 mg/dL (0.2-1.0); TOTAL PROTEIN 8.2 g/dL (6.4-8.2)
[2018-10-26 21:41] LABS: MD YES
--- NOTE | 2018-10-26 22:11 | NUR ---
report of pt from pooja hathaway and assuming care of pt at this time.
[2018-10-26 22:22] LABS: BASOS#(MANUAL) 0.19 x10^3/uL (0-0.1); BASOS% (MANUAL) 1 % (0-1); LYMPH#(MANUAL) 1.86 x10^3/uL (1-3.4); LYMPHS% (MANUAL) 10 % (22-44); MONOS#(MANUAL) 0.93 x10^3/uL (0.3-2.7); MONOS% (MANUAL) 5 % (2-9); SEG#(MANUAL) 15.62 x10^3/uL (1.8-6.8); SEGS% (MANUAL) 84 % (42-75)
[2018-10-26 22:28] LABS: <PLATELET ESTIMATE> INCREASED; <PLT MORPHOLOGY> NORMAL PLT MORPH; HYPOCHROMIA 1+; MICROCYTOSIS 1+
[2018-10-26] MEDS ORDERED: VANCOMYCIN PER PHARMACY IV ONE (22:30)
[2018-10-26] MEDS ORDERED: VANCOMYCIN PMX 1GM/200ML 200 ML IV ONE (22:30)
--- NOTE | 2018-10-26 22:38 | NUR ---
pt medicated with abx per oct. pt denies any needs at this time. call light within reach; pt bed req on floor.
[2018-10-26] MEDS ORDERED: VANCOMYCIN PER PHARMACY MC PRN (23:00)
[2018-10-26] MEDS ORDERED: LIDODERM 5% PATCH TD PRN (23:00)
--- NOTE | 2018-10-26 23:25 | NUR ---
report of pt to floor rn. pt taken to us via alethea.
[2018-10-27 00:28] VITALS: BP 104/64
[2018-10-27] MEDS ORDERED: PHARMACOKINETIC MONITORING MC PRN (00:30)
[2018-10-27] MEDS ORDERED: OMNIPAQUE 350 MG/ML, 100ML BOTTLE ONE (00:30)
[2018-10-27] MEDS: PREGABALIN 150 MG CAPSULE PO SCH ×3 (00:46→19:22)
[2018-10-27] MEDS: morphine SULFATE 10 MG/ML, 1ML IVPush PRN ×3 (00:46→19:22)
[2018-10-27] MEDS: METHADONE 5 MG TABLET PO SCH ×3 (01:15→19:22)
[2018-10-27] MEDS: TRAZODONE 100MG TABLET PO PRN ×2 (01:16→19:22)
[2018-10-27] MEDS: CEFTRIAXONE PMX 2GM/50ML 50 ML IV SCH (02:09)
[2018-10-27] MEDS: NS + 20MEQ KCL 1,000 ML IV SCH ×3 (02:09→22:20)
[2018-10-27 02:32] VITALS: BP 82/50
[2018-10-27] MEDS: VANCOMYCIN PMX 1GM/200ML 200 ML IV SCH ×3 (05:49→23:02)
[2018-10-27 10:09] LABS: MEAN CORPUSCULAR HEMOGLOBIN 25.8 pg (27.0-34.8); MEAN CORPUSCULAR HGB CONC 32.8 g/dL (32.4-35.8); MEAN CORPUSCULAR VOLUME 78.7 fL (80-100); MEAN PLATELET VOLUME 7.4 fL (7.4-10.4); PLATELET COUNT 495 x10^3/uL (130-400); RED BLOOD COUNT 4.55 x10^6/uL (3.82-5.3); RED CELL DISTRIBUTION WIDTH 17.5 % (9.6-15.2)
[2018-10-27 10:17] LABS: ANION GAP 7 mmol/L (5-15); CALCIUM 8.6 mg/dL (8.5-10.1); CHLORIDE 107 mmol/L (98-107); CREATININE 0.47 mg/dL (0.55-1.02)
[2018-10-27 10:50] LABS: MD SCAN
[2018-10-27 10:51] LABS: BASOPHILS # (AUTO) 0.02 x10^3/uL (0-0.1); BASOPHILS % (AUTO) 0 % (0-1); EOSINOPHILS # (AUTO) 0.15 x10^3/uL (0-0.4); EOSINOPHILS % (AUTO) 1 % (1-7); LYMPHOCYTES % (AUTO) 9 % (22-44); MONOCYTES # (AUTO) 1.05 x10^3/uL (0.2-0.8); MONOCYTES % (AUTO) 8 % (2-9); NEUTROPHILS # (AUTO) 11.12 x10^3/uL (1.8-6.8); NEUTROPHILS % (AUTO) 82 % (42-75)
[2018-10-27 12:39] LABS: HCT (SEDRATE) 35.8 % (34.6-47.8)
[2018-10-27] MEDS: KETOROLAC 30 MG/1 ML IV PRN ×2 (13:42→20:31)
[2018-10-27] MEDS: ACETAMINOPHEN 325 MG TABLET PO PRN (20:31)
[2018-10-27 22:11] VITALS: BP 90/50
[2018-10-28] MEDS: CEFTRIAXONE PMX 2GM/50ML 50 ML IV SCH ×2 (00:17→23:52)
[2018-10-28 03:59] VITALS: BP 90/56
[2018-10-28] MEDS: morphine SULFATE 10 MG/ML, 1ML IVPush PRN ×2 (04:51→20:15)
[2018-10-28 05:52] LABS: MEAN CORPUSCULAR HEMOGLOBIN 25.9 pg (27.0-34.8); MEAN CORPUSCULAR HGB CONC 32.7 g/dL (32.4-35.8); MEAN CORPUSCULAR VOLUME 79.1 fL (80-100); MEAN PLATELET VOLUME 7.5 fL (7.4-10.4); PLATELET COUNT 534 x10^3/uL (130-400); RED BLOOD COUNT 4.33 x10^6/uL (3.82-5.3); RED CELL DISTRIBUTION WIDTH 17.7 % (9.6-15.2)
[2018-10-28 05:59] LABS: CHLORIDE 115 mmol/L (98-107)
[2018-10-28] MEDS: VANCOMYCIN PMX 1GM/200ML 200 ML IV SCH (06:07)
[2018-10-28 06:12] LABS: ALANINE AMINOTRANSFERASE 14 U/L (12-78); ALBUMIN 2.2 g/dL (3.4-5.0); ALKALINE PHOSPHATASE 207 U/L (45-117); ANION GAP 7 mmol/L (5-15); BILIRUBIN,TOTAL 0.6 mg/dL (0.2-1.0); CALCIUM 8.4 mg/dL (8.5-10.1); CREATININE 0.62 mg/dL (0.55-1.02); TOTAL PROTEIN 7.2 g/dL (6.4-8.2)
[2018-10-28] MEDS: KETOROLAC 30 MG/1 ML IV PRN ×3 (06:25→22:03)
[2018-10-28 06:30] LABS: BASOPHILS # (AUTO) 0.04 x10^3/uL (0-0.1); BASOPHILS % (AUTO) 0 % (0-1); EOSINOPHILS # (AUTO) 0.08 x10^3/uL (0-0.4); EOSINOPHILS % (AUTO) 0 % (1-7); LYMPHOCYTES # (AUTO) 1.81 x10^3/uL (1-3.4); LYMPHOCYTES % (AUTO) 8 % (22-44); MD SCAN; MONOCYTES # (AUTO) 1.51 x10^3/uL (0.2-0.8); MONOCYTES % (AUTO) 7 % (2-9); NEUTROPHILS # (AUTO) 18.03 x10^3/uL (1.8-6.8); NEUTROPHILS % (AUTO) 84 % (42-75)
[2018-10-28 06:37] LABS: HCG UR SG 1.014 (1.003-1.030); MICROSCOPIC NOT IND
[2018-10-28 06:39] LABS: CULTURE INDICATED? NO
[2018-10-28 06:50] VITALS: BP 95/52
[2018-10-28] MEDS: PREGABALIN 150 MG CAPSULE PO SCH ×2 (09:00→14:03)
[2018-10-28] MEDS: METHADONE 5 MG TABLET PO SCH ×2 (09:00→14:04)
[2018-10-28] MEDS ORDERED: MIDAZOLAM 1 MG/ML, 2ML ONE ×3 (09:48→11:40)
[2018-10-28] MEDS ORDERED: FENTANYL PF 1000 MCG/20ML ONE (09:48)
[2018-10-28] MEDS ORDERED: ONDANSETRON 2MG/ML, 2ML IV PRN (10:00)
[2018-10-28] MEDS ORDERED: SCOPOLAMINE PATCH, 1.5MG PATCH.TD72 TD PRN (10:00)
[2018-10-28] MEDS ORDERED: PROMETHAZINE 25 MG/ML, 1ML IV PRN (10:00)
[2018-10-28] MEDS ORDERED: ALBUTEROL/IPRATROPIUM 2.5MG/0.5MG, 3 ML NPPB PRN (10:00)
[2018-10-28] MEDS ORDERED: OXYcodone 5 MG/5 ML ORAL.SOL UDC PO PRN (10:00)
[2018-10-28] MEDS ORDERED: hydrALAzine 20 MG/ML, 1ML IV PRN (10:00)
[2018-10-28] MEDS ORDERED: MEPERIDINE/PF 25MG/0.5ML IVPush PRN (10:00)
[2018-10-28] MEDS: NS + 20MEQ KCL 1,000 ML IV SCH ×2 (10:10→23:52)
[2018-10-28] MEDS ORDERED: DEXAMETHASONE 4 MG/ML, 1ML ONE (10:39)
[2018-10-28] MEDS ORDERED: SUCCINYLCHOLINE 20 MG/ML, 10ML ONE (10:39)
[2018-10-28] MEDS ORDERED: FENTANYL PF 100 MCG/2ML ONE ×2 (11:01→12:28)
[2018-10-28] MEDS ORDERED: HYDROmorphone 2 MG/ML, 1ML ONE (11:02)
[2018-10-28] MEDS ORDERED: OXYcodone 5 MG/5 ML ORAL.SOL UDC ONE (11:02)
[2018-10-28] MEDS ORDERED: MORPHINE SULFATE 4 MG/ML, 1ML ONE ×2 (11:14→11:22)
[2018-10-28] MEDS ORDERED: ONDANSETRON 2MG/ML, 2ML ONE (11:28)
[2018-10-28] MEDS ORDERED: PROPOFOL 10 MG/ML, 20ML ONE (11:28)
[2018-10-28] MEDS ORDERED: FENTANYL PF 250 MCG/5ML ONE (11:29)
[2018-10-28] MEDS: HYDROmorphone 2 MG/ML, 1ML IVPush PRN ×4 (12:07→12:37)
[2018-10-28] MEDS: MIDAZOLAM 1 MG/ML, 2ML IV PRN ×2 (12:08→12:34)
[2018-10-28] MEDS: FENTANYL PF 100 MCG/2ML IV PRN ×3 (12:08→12:34)
[2018-10-28] MEDS: VANCOMYCIN 1,100 MG in SODIUM CHLORIDE 0.9% 250 ML IV SCH ×2 (14:03→22:03)
[2018-10-28 19:50] VITALS: BP 107/58
[2018-10-28] MEDS: TRAZODONE 100MG TABLET PO PRN ×2 (20:15→21:35)
[2018-10-29 00:17] VITALS: BP 93/54
[2018-10-29] MEDS: PREGABALIN 150 MG CAPSULE PO SCH ×3 (02:00→20:07)
[2018-10-29] MEDS: METHADONE 5 MG TABLET PO SCH ×3 (02:00→20:07)
[2018-10-29] MEDS: morphine SULFATE 10 MG/ML, 1ML IVPush PRN ×5 (03:08→18:19)
[2018-10-29 04:15] VITALS: BP 102/63
[2018-10-29] MEDS: KETOROLAC 30 MG/1 ML IV PRN ×2 (05:24→20:07)
[2018-10-29 05:35] LABS: MEAN CORPUSCULAR HEMOGLOBIN 25.5 pg (27.0-34.8); MEAN CORPUSCULAR VOLUME 79.4 fL (80-100); MEAN PLATELET VOLUME 7.4 fL (7.4-10.4); PLATELET COUNT 479 x10^3/uL (130-400); RED BLOOD COUNT 3.35 x10^6/uL (3.82-5.3); RED CELL DISTRIBUTION WIDTH 17.4 % (9.6-15.2)
[2018-10-29 05:41] LABS: ALBUMIN 1.9 g/dL (3.4-5.0); ANION GAP 6 mmol/L (5-15); CALCIUM 7.8 mg/dL (8.5-10.1); CHLORIDE 119 mmol/L (98-107)
[2018-10-29 05:45] LABS: ALANINE AMINOTRANSFERASE 14 U/L (12-78); ALKALINE PHOSPHATASE 144 U/L (45-117); BILIRUBIN,TOTAL 0.5 mg/dL (0.2-1.0); CREATININE 0.55 mg/dL (0.55-1.02); VANCOMYCIN,TROUGH 16.7 mcg/mL (5.0-10.0)
[2018-10-29 06:02] LABS: BASOPHILS % (AUTO) 0 % (0-1); EOSINOPHILS # (AUTO) 0.01 x10^3/uL (0-0.4); EOSINOPHILS % (AUTO) 0 % (1-7); LYMPHOCYTES # (AUTO) 1.36 x10^3/uL (1-3.4); LYMPHOCYTES % (AUTO) 8 % (22-44); MD SCAN; MONOCYTES % (AUTO) 4 % (2-9); NEUTROPHILS # (AUTO) 15.02 x10^3/uL (1.8-6.8); NEUTROPHILS % (AUTO) 88 % (42-75)
[2018-10-29] MEDS: VANCOMYCIN 1,100 MG in SODIUM CHLORIDE 0.9% 250 ML IV SCH ×3 (06:14→22:13)
[2018-10-29 07:20] VITALS: BP 110/68
[2018-10-29] MEDS: ENOXAPARIN 40 MG/0.4 ML SQ SCH (11:00)
[2018-10-29 13:40] VITALS: BP 105/63
[2018-10-29] MEDS: TRAZODONE 100MG TABLET PO PRN (20:07)
[2018-10-29 20:31] VITALS: BP 112/69
[2018-10-30] MEDS: morphine SULFATE 10 MG/ML, 1ML IVPush PRN ×6 (02:11→21:40)
[2018-10-30 03:52] VITALS: BP 97/59
[2018-10-30 05:51] LABS: CALCIUM 8.1 mg/dL (8.5-10.1); CHLORIDE 119 mmol/L (98-107)
[2018-10-30 05:55] LABS: ANION GAP 5 mmol/L (5-15); CREATININE 0.41 mg/dL (0.55-1.02)
[2018-10-30 06:04] LABS: BASOPHILS # (AUTO) 0.04 x10^3/uL (0-0.1); BASOPHILS % (AUTO) 0 % (0-1); EOSINOPHILS # (AUTO) 0.18 x10^3/uL (0-0.4); EOSINOPHILS % (AUTO) 2 % (1-7); LYMPHOCYTES # (AUTO) 2.24 x10^3/uL (1-3.4); LYMPHOCYTES % (AUTO) 24 % (22-44); MD NO; MEAN CORPUSCULAR HEMOGLOBIN 25.8 pg (27.0-34.8); MEAN CORPUSCULAR VOLUME 78.1 fL (80-100); MEAN PLATELET VOLUME 7.5 fL (7.4-10.4); MONOCYTES # (AUTO) 0.59 x10^3/uL (0.2-0.8); MONOCYTES % (AUTO) 6 % (2-9); NEUTROPHILS # (AUTO) 6.48 x10^3/uL (1.8-6.8); NEUTROPHILS % (AUTO) 68 % (42-75); PLATELET COUNT 480 x10^3/uL (130-400); RED BLOOD COUNT 3.35 x10^6/uL (3.82-5.3); RED CELL DISTRIBUTION WIDTH 18.1 % (9.6-15.2)
[2018-10-30] MEDS: VANCOMYCIN 1,100 MG in SODIUM CHLORIDE 0.9% 250 ML IV SCH ×3 (06:12→21:43)
[2018-10-30] MEDS: KETOROLAC 30 MG/1 ML IV PRN ×2 (06:13→20:15)
[2018-10-30 07:20] VITALS: BP 97/59
[2018-10-30] MEDS: METHADONE 5 MG TABLET PO SCH ×2 (09:34→20:16)
[2018-10-30] MEDS: PREGABALIN 150 MG CAPSULE PO SCH ×2 (09:35→21:40)
[2018-10-30] MEDS: ENOXAPARIN 40 MG/0.4 ML SQ SCH (10:56)
[2018-10-30] MEDS ORDERED: VANCOMYCIN PER PHARMACY MC PRN (12:30)
[2018-10-30] MEDS ORDERED: PHARMACOKINETIC MONITORING MC PRN (13:00)
[2018-10-30 14:02] VITALS: BP 114/70
[2018-10-30 18:55] VITALS: BP 106/65
[2018-10-30] MEDS: TRAZODONE 100MG TABLET PO PRN (20:15)
[2018-10-31 03:30] VITALS: BP 115/67
[2018-10-31] MEDS: morphine SULFATE 10 MG/ML, 1ML IVPush PRN ×5 (03:37→21:12)
[2018-10-31 05:29] LABS: ANION GAP 8 mmol/L (5-15); CALCIUM 8.3 mg/dL (8.5-10.1); CHLORIDE 111 mmol/L (98-107); CREATININE 0.52 mg/dL (0.55-1.02)
[2018-10-31 05:31] LABS: BASOPHILS % (AUTO) 0 % (0-1); EOSINOPHILS # (AUTO) 0.22 x10^3/uL (0-0.4); EOSINOPHILS % (AUTO) 3 % (1-7); LYMPHOCYTES # (AUTO) 1.91 x10^3/uL (1-3.4); LYMPHOCYTES % (AUTO) 23 % (22-44); MD NO; MEAN CORPUSCULAR HGB CONC 31.9 g/dL (32.4-35.8); MEAN CORPUSCULAR VOLUME 78.2 fL (80-100); MEAN PLATELET VOLUME 7.4 fL (7.4-10.4); MONOCYTES # (AUTO) 0.14 x10^3/uL (0.2-0.8); MONOCYTES % (AUTO) 2 % (2-9); NEUTROPHILS # (AUTO) 6.07 x10^3/uL (1.8-6.8); NEUTROPHILS % (AUTO) 73 % (42-75); PLATELET COUNT 579 x10^3/uL (130-400); RED BLOOD COUNT 3.74 x10^6/uL (3.82-5.3); RED CELL DISTRIBUTION WIDTH 17.6 % (9.6-15.2)
[2018-10-31] MEDS: VANCOMYCIN 1,100 MG in SODIUM CHLORIDE 0.9% 250 ML IV SCH ×3 (06:30→22:22)
[2018-10-31 07:05] VITALS: BP 108/66
[2018-10-31] MEDS: ENOXAPARIN 40 MG/0.4 ML SQ SCH (08:08)
[2018-10-31] MEDS: PREGABALIN 150 MG CAPSULE PO SCH ×2 (08:13→20:00)
[2018-10-31] MEDS: METHADONE 5 MG TABLET PO SCH ×2 (08:13→20:00)
[2018-10-31] MEDS: BACLOFEN 10 MG TABLET PO SCH ×3 (09:59→20:00)
[2018-10-31] MEDS: GABAPENTIN 100 MG CAPSULE PO SCH ×3 (11:27→20:00)
[2018-10-31 13:34] VITALS: BP 106/61
[2018-10-31] MEDS: KETOROLAC 30 MG/1 ML IV PRN (17:19)
[2018-10-31 19:20] VITALS: BP 106/62
[2018-10-31] MEDS: TRAZODONE 100MG TABLET PO PRN (19:59)
[2018-11-01] MEDS: morphine SULFATE 10 MG/ML, 1ML IVPush PRN ×6 (00:33→20:28)
[2018-11-01 02:18] VITALS: BP 115/63
[2018-11-01] MEDS: GABAPENTIN 100 MG CAPSULE PO SCH ×2 (05:40→11:14)
[2018-11-01] MEDS: VANCOMYCIN 1,100 MG in SODIUM CHLORIDE 0.9% 250 ML IV SCH ×2 (05:40→17:34)
[2018-11-01 07:15] VITALS: BP 137/92
[2018-11-01] MEDS: PREGABALIN 150 MG CAPSULE PO SCH ×2 (09:22→19:29)
[2018-11-01] MEDS: METHADONE 5 MG TABLET PO SCH ×2 (09:22→19:29)
[2018-11-01] MEDS: BACLOFEN 10 MG TABLET PO SCH ×3 (09:23→19:29)
[2018-11-01 09:35] VITALS: BP 106/57
[2018-11-01] MEDS: ENOXAPARIN 40 MG/0.4 ML SQ SCH (11:00)
[2018-11-01 12:35] LABS: HCT (SEDRATE) 31.2 % (34.6-47.8)
[2018-11-01 12:39] LABS: BASOPHILS # (AUTO) 0.05 x10^3/uL (0-0.1); BASOPHILS % (AUTO) 0 % (0-1); EOSINOPHILS # (AUTO) 0.17 x10^3/uL (0-0.4); EOSINOPHILS % (AUTO) 2 % (1-7); LYMPHOCYTES # (AUTO) 1.72 x10^3/uL (1-3.4); LYMPHOCYTES % (AUTO) 16 % (22-44); MD NO; MEAN CORPUSCULAR HEMOGLOBIN 25.8 pg (27.0-34.8); MEAN CORPUSCULAR HGB CONC 33.3 g/dL (32.4-35.8); MEAN CORPUSCULAR VOLUME 77.4 fL (80-100); MEAN PLATELET VOLUME 7.3 fL (7.4-10.4); MONOCYTES % (AUTO) 4 % (2-9); NEUTROPHILS # (AUTO) 8.44 x10^3/uL (1.8-6.8); NEUTROPHILS % (AUTO) 78 % (42-75); PLATELET COUNT 613 x10^3/uL (130-400); RED BLOOD COUNT 4.05 x10^6/uL (3.82-5.3); RED CELL DISTRIBUTION WIDTH 17.6 % (9.6-15.2)
[2018-11-01 12:55] LABS: ANION GAP 6 mmol/L (5-15); CALCIUM 8.8 mg/dL (8.5-10.1); CHLORIDE 110 mmol/L (98-107); CREATININE 0.52 mg/dL (0.55-1.02)
[2018-11-01 14:43] VITALS: BP 119/74
[2018-11-01 19:09] VITALS: BP 122/55
[2018-11-01] MEDS: TRAZODONE 100MG TABLET PO PRN (19:29)
[2018-11-01] MEDS: ACETAMINOPHEN 325 MG TABLET PO PRN (19:30)
[2018-11-02 01:34] VITALS: BP 116/56
[2018-11-02] MEDS: morphine SULFATE 10 MG/ML, 1ML IVPush PRN ×7 (01:44→23:37)
[2018-11-02] MEDS: VANCOMYCIN 1,100 MG in SODIUM CHLORIDE 0.9% 250 ML IV SCH ×2 (05:38→16:52)
[2018-11-02 06:48] LABS: BASOPHILS # (AUTO) 0.05 x10^3/uL (0-0.1); BASOPHILS % (AUTO) 1 % (0-1); EOSINOPHILS # (AUTO) 0.29 x10^3/uL (0-0.4); EOSINOPHILS % (AUTO) 3 % (1-7); LYMPHOCYTES # (AUTO) 2.27 x10^3/uL (1-3.4); LYMPHOCYTES % (AUTO) 22 % (22-44); MD NO; MEAN CORPUSCULAR HEMOGLOBIN 25.6 pg (27.0-34.8); MEAN CORPUSCULAR HGB CONC 32.9 g/dL (32.4-35.8); MEAN CORPUSCULAR VOLUME 77.7 fL (80-100); MEAN PLATELET VOLUME 7.6 fL (7.4-10.4); MONOCYTES # (AUTO) 0.64 x10^3/uL (0.2-0.8); MONOCYTES % (AUTO) 6 % (2-9); NEUTROPHILS # (AUTO) 6.89 x10^3/uL (1.8-6.8); NEUTROPHILS % (AUTO) 68 % (42-75); PLATELET COUNT 573 x10^3/uL (130-400); RED BLOOD COUNT 4.03 x10^6/uL (3.82-5.3); RED CELL DISTRIBUTION WIDTH 17.8 % (9.6-15.2)
[2018-11-02 06:57] LABS: ANION GAP 6 mmol/L (5-15); CALCIUM 8.9 mg/dL (8.5-10.1); CHLORIDE 111 mmol/L (98-107); CREATININE 0.66 mg/dL (0.55-1.02)
[2018-11-02 08:45] VITALS: BP 104/52
[2018-11-02] MEDS: PREGABALIN 150 MG CAPSULE PO SCH ×2 (09:00→19:18)
[2018-11-02] MEDS: BACLOFEN 10 MG TABLET PO SCH ×3 (09:00→19:18)
[2018-11-02] MEDS: METHADONE 5 MG TABLET PO SCH ×2 (09:00→19:18)
[2018-11-02] MEDS: ENOXAPARIN 40 MG/0.4 ML SQ SCH (10:35)
[2018-11-02 12:05] VITALS: BP 117/59
[2018-11-02 19:11] VITALS: BP 101/52
[2018-11-02] MEDS: TRAZODONE 100MG TABLET PO PRN (19:19)
[2018-11-03] MEDS ORDERED: ORAJEL 7GM TUBE MM PRN
[2018-11-03 01:34] VITALS: BP 110/70
[2018-11-03] MEDS: morphine SULFATE 10 MG/ML, 1ML IVPush PRN ×4 (03:22→15:55)
[2018-11-03] MEDS: VANCOMYCIN 1,100 MG in SODIUM CHLORIDE 0.9% 250 ML IV SCH ×2 (05:20→17:59)
[2018-11-03 05:32] LABS: BASOPHILS # (AUTO) 0.02 x10^3/uL (0-0.1); BASOPHILS % (AUTO) 0 % (0-1); EOSINOPHILS # (AUTO) 0.28 x10^3/uL (0-0.4); EOSINOPHILS % (AUTO) 2 % (1-7); LYMPHOCYTES # (AUTO) 2.06 x10^3/uL (1-3.4); LYMPHOCYTES % (AUTO) 18 % (22-44); MD NO; MEAN CORPUSCULAR HEMOGLOBIN 25.8 pg (27.0-34.8); MEAN CORPUSCULAR HGB CONC 32.9 g/dL (32.4-35.8); MEAN CORPUSCULAR VOLUME 78.2 fL (80-100); MEAN PLATELET VOLUME 7.7 fL (7.4-10.4); MONOCYTES # (AUTO) 0.65 x10^3/uL (0.2-0.8); MONOCYTES % (AUTO) 6 % (2-9); NEUTROPHILS # (AUTO) 8.44 x10^3/uL (1.8-6.8); NEUTROPHILS % (AUTO) 74 % (42-75); PLATELET COUNT 567 x10^3/uL (130-400); RED BLOOD COUNT 4.05 x10^6/uL (3.82-5.3); RED CELL DISTRIBUTION WIDTH 17.8 % (9.6-15.2)
[2018-11-03 05:36] LABS: ANION GAP 5 mmol/L (5-15); CALCIUM 8.9 mg/dL (8.5-10.1); CHLORIDE 108 mmol/L (98-107)
[2018-11-03 05:37] LABS: CREATININE 0.63 mg/dL (0.55-1.02)
[2018-11-03 07:03] VITALS: BP 105/56
[2018-11-03] MEDS ORDERED: BACITRACIN 50,000 UNIT ONE (07:39)
[2018-11-03] MEDS ORDERED: FENTANYL PF 250 MCG/5ML ONE ×3 (07:58→08:22)
[2018-11-03] MEDS ORDERED: SUCCINYLCHOLINE 20 MG/ML, 10ML ONE ×2 (07:58→08:54)
[2018-11-03] MEDS ORDERED: hydrALAzine 20 MG/ML, 1ML IV PRN (08:00)
[2018-11-03] MEDS ORDERED: LABETALOL 5MG/ML, 20ML IV PRN (08:00)
[2018-11-03] MEDS ORDERED: PROMETHAZINE 25 MG/ML, 1ML IV PRN (08:00)
[2018-11-03] MEDS ORDERED: MEPERIDINE/PF 25MG/0.5ML IVPush PRN (08:00)
[2018-11-03] MEDS ORDERED: OXYcodone 5 MG/5 ML ORAL.SOL UDC PO PRN (08:00)
[2018-11-03] MEDS ORDERED: ONDANSETRON 2MG/ML, 2ML IV PRN (08:00)
[2018-11-03] MEDS ORDERED: ONDANSETRON 2MG/ML, 2ML ONE ×3 (08:30→08:54)
[2018-11-03] MEDS ORDERED: FENTANYL PF 100 MCG/2ML ONE (08:39)
[2018-11-03] MEDS ORDERED: HYDROmorphone 2 MG/ML, 1ML ONE (08:40)
[2018-11-03] MEDS ORDERED: DEXAMETHASONE 4 MG/ML, 5ML ONE (08:54)
[2018-11-03] MEDS ORDERED: PROPOFOL 10 MG/ML, 20ML ONE (08:54)
[2018-11-03] MEDS: FENTANYL PF 100 MCG/2ML IV PRN ×4 (09:00→09:26)
[2018-11-03] MEDS: HYDROmorphone 2 MG/ML, 1ML IVPush PRN ×4 (09:05→09:26)
[2018-11-03] MEDS: METHADONE 5 MG TABLET PO SCH ×2 (10:04→20:29)
[2018-11-03] MEDS: BACLOFEN 10 MG TABLET PO SCH ×3 (10:05→20:29)
[2018-11-03] MEDS: PREGABALIN 150 MG CAPSULE PO SCH ×2 (10:05→20:29)
[2018-11-03] MEDS: ENOXAPARIN 40 MG/0.4 ML SQ SCH (10:09)
[2018-11-03] MEDS: ACETAMINOPHEN 325 MG TABLET PO PRN ×2 (12:33→20:29)
[2018-11-03 13:05] VITALS: BP 108/61
[2018-11-03 19:23] VITALS: BP 113/57
[2018-11-03] MEDS: TRAZODONE 100MG TABLET PO PRN (20:29)
[2018-11-04 01:49] VITALS: BP 108/52
[2018-11-04] MEDS: morphine SULFATE 10 MG/ML, 1ML IVPush PRN ×2 (03:07→05:57)
[2018-11-04] MEDS: VANCOMYCIN 1,100 MG in SODIUM CHLORIDE 0.9% 250 ML IV SCH (04:48)
[2018-11-04 05:26] LABS: BASOPHILS # (AUTO) 0.03 x10^3/uL (0-0.1); BASOPHILS % (AUTO) 0 % (0-1); EOSINOPHILS # (AUTO) 0.39 x10^3/uL (0-0.4); EOSINOPHILS % (AUTO) 4 % (1-7); LYMPHOCYTES # (AUTO) 2.08 x10^3/uL (1-3.4); LYMPHOCYTES % (AUTO) 19 % (22-44); MD NO; MEAN CORPUSCULAR HGB CONC 33.2 g/dL (32.4-35.8); MEAN CORPUSCULAR VOLUME 78.4 fL (80-100); MEAN PLATELET VOLUME 7.6 fL (7.4-10.4); MONOCYTES # (AUTO) 0.84 x10^3/uL (0.2-0.8); MONOCYTES % (AUTO) 8 % (2-9); NEUTROPHILS # (AUTO) 7.72 x10^3/uL (1.8-6.8); NEUTROPHILS % (AUTO) 70 % (42-75); PLATELET COUNT 536 x10^3/uL (130-400); RED BLOOD COUNT 3.72 x10^6/uL (3.82-5.3); RED CELL DISTRIBUTION WIDTH 18.3 % (9.6-15.2)
[2018-11-04 05:37] LABS: CHLORIDE 109 mmol/L (98-107)
[2018-11-04 05:45] LABS: ANION GAP 6 mmol/L (5-15); CALCIUM 8.9 mg/dL (8.5-10.1); CREATININE 0.58 mg/dL (0.55-1.02)
[2018-11-04 07:45] VITALS: BP 108/57
[2018-11-04] MEDS ORDERED: morphine SULFATE 10 MG/ML, 1ML IVPush PRN (09:30)
[2018-11-04] MEDS: METHADONE 5 MG TABLET PO SCH ×2 (09:46→20:48)
[2018-11-04] MEDS: PREGABALIN 150 MG CAPSULE PO SCH ×2 (09:46→20:48)
[2018-11-04] MEDS: ENOXAPARIN 40 MG/0.4 ML SQ SCH (09:47)
[2018-11-04] MEDS: BACLOFEN 10 MG TABLET PO SCH ×3 (09:58→20:48)
[2018-11-04] MEDS: OXYcodone/APAP 7.5/325MG TABLET PO PRN ×2 (12:27→18:43)
[2018-11-04 13:26] VITALS: BP 117/74
[2018-11-04] MEDS: VANCOMYCIN 1,300 MG in SODIUM CHLORIDE 0.9% 250 ML IV SCH (17:37)
[2018-11-04 20:32] VITALS: BP 116/70
[2018-11-04] MEDS: TRAZODONE 100MG TABLET PO PRN (20:48)
[2018-11-05 03:00] VITALS: BP 110/68
[2018-11-05] MEDS: VANCOMYCIN 1,300 MG in SODIUM CHLORIDE 0.9% 250 ML IV SCH ×2 (04:37→17:17)
[2018-11-05] MEDS: OXYcodone/APAP 7.5/325MG TABLET PO PRN ×3 (04:37→22:23)
[2018-11-05 05:41] LABS: BASOPHILS # (AUTO) 0.04 x10^3/uL (0-0.1); BASOPHILS % (AUTO) 0 % (0-1); EOSINOPHILS # (AUTO) 0.35 x10^3/uL (0-0.4); EOSINOPHILS % (AUTO) 3 % (1-7); LYMPHOCYTES # (AUTO) 2.57 x10^3/uL (1-3.4); LYMPHOCYTES % (AUTO) 25 % (22-44); MD NO; MEAN CORPUSCULAR HEMOGLOBIN 25.8 pg (27.0-34.8); MEAN CORPUSCULAR HGB CONC 32.8 g/dL (32.4-35.8); MEAN CORPUSCULAR VOLUME 78.7 fL (80-100); MEAN PLATELET VOLUME 7.9 fL (7.4-10.4); MONOCYTES # (AUTO) 0.97 x10^3/uL (0.2-0.8); MONOCYTES % (AUTO) 9 % (2-9); NEUTROPHILS % (AUTO) 62 % (42-75); PLATELET COUNT 520 x10^3/uL (130-400); RED BLOOD COUNT 4.14 x10^6/uL (3.82-5.3); RED CELL DISTRIBUTION WIDTH 18.2 % (9.6-15.2)
[2018-11-05 05:42] LABS: HCT (SEDRATE) 32.1 % (34.6-47.8)
[2018-11-05 05:52] LABS: CHLORIDE 109 mmol/L (98-107)
[2018-11-05 06:15] LABS: ALANINE AMINOTRANSFERASE 36 U/L (12-78); ALBUMIN 2.9 g/dL (3.4-5.0); ALKALINE PHOSPHATASE 151 U/L (45-117); ANION GAP 5 mmol/L (5-15); BILIRUBIN,TOTAL 0.3 mg/dL (0.2-1.0); CALCIUM 9.2 mg/dL (8.5-10.1); CREATININE 0.63 mg/dL (0.55-1.02); TOTAL PROTEIN 8.4 g/dL (6.4-8.2)
[2018-11-05 07:40] VITALS: BP 99/63
[2018-11-05] MEDS: PREGABALIN 150 MG CAPSULE PO SCH ×2 (08:09→21:02)
[2018-11-05] MEDS: BACLOFEN 10 MG TABLET PO SCH ×3 (08:09→21:02)
[2018-11-05] MEDS: METHADONE 5 MG TABLET PO SCH ×2 (08:09→21:02)
[2018-11-05] MEDS: ENOXAPARIN 40 MG/0.4 ML SQ SCH (11:00)
[2018-11-05 13:16] VITALS: BP 100/62
[2018-11-05 20:50] VITALS: BP 115/62
[2018-11-05] MEDS: TRAZODONE 100MG TABLET PO PRN (21:07)
[2018-11-06 00:48] VITALS: BP 103/62
[2018-11-06] MEDS: OXYcodone/APAP 7.5/325MG TABLET PO PRN (05:49)
[2018-11-06] MEDS: VANCOMYCIN 1,300 MG in SODIUM CHLORIDE 0.9% 250 ML IV SCH ×2 (05:49→17:54)
[2018-11-06 08:03] VITALS: BP 95/42
[2018-11-06] MEDS: PREGABALIN 150 MG CAPSULE PO SCH ×2 (09:04→21:09)
[2018-11-06] MEDS: METHADONE 5 MG TABLET PO SCH ×2 (09:04→21:08)
[2018-11-06] MEDS: BACLOFEN 10 MG TABLET PO SCH ×3 (09:04→21:09)
[2018-11-06] MEDS: ENOXAPARIN 40 MG/0.4 ML SQ SCH (09:06)
[2018-11-06] MEDS ORDERED: NEOSPORIN OINT. PKT 1 PACKET TP PRN (09:30)
[2018-11-06 13:17] VITALS: BP 115/74
[2018-11-06 19:10] VITALS: BP 97/49
[2018-11-06] MEDS: TRAZODONE 100MG TABLET PO PRN (21:23)
[2018-11-06] MEDS: DIPHENHYDRAMINE 25 MG CAPSULE PO PRN (23:17)
[2018-11-07 04:13] VITALS: BP 108/62
[2018-11-07 07:42] VITALS: BP 98/51
[2018-11-07] MEDS: METHADONE 5 MG TABLET PO SCH ×2 (08:20→21:20)
[2018-11-07] MEDS: BACLOFEN 10 MG TABLET PO SCH ×3 (08:20→21:20)
[2018-11-07] MEDS: PREGABALIN 150 MG CAPSULE PO SCH ×2 (08:20→21:20)
[2018-11-07] MEDS: VANCOMYCIN 1,300 MG in SODIUM CHLORIDE 0.9% 250 ML IV SCH ×2 (08:20→22:07)
[2018-11-07] MEDS: ENOXAPARIN 40 MG/0.4 ML SQ SCH (08:28)
[2018-11-07 13:41] VITALS: BP 101/61
[2018-11-07] MEDS: DIPHENHYDRAMINE 25 MG CAPSULE PO PRN (15:40)
[2018-11-07] MEDS: OXYcodone/APAP 7.5/325MG TABLET PO PRN ×2 (15:40→21:20)
[2018-11-07 18:38] VITALS: BP 124/81
[2018-11-07] MEDS: TRAZODONE 100MG TABLET PO PRN (21:21)
[2018-11-08 01:03] VITALS: BP 99/58
[2018-11-08 06:12] LABS: CREATININE 0.62 mg/dL (0.55-1.02)
[2018-11-08 06:13] LABS: VANCOMYCIN,TROUGH 29.3 mcg/mL (5.0-10.0)
[2018-11-08 07:59] VITALS: BP 94/57
[2018-11-08] MEDS: METHADONE 5 MG TABLET PO SCH ×2 (08:38→21:25)
[2018-11-08] MEDS: VANCOMYCIN 1,300 MG in SODIUM CHLORIDE 0.9% 250 ML IV SCH ×2 (08:38→21:26)
[2018-11-08] MEDS: BACLOFEN 10 MG TABLET PO SCH ×3 (08:38→21:25)
[2018-11-08] MEDS: PREGABALIN 150 MG CAPSULE PO SCH ×2 (08:38→21:25)
[2018-11-08] MEDS: ENOXAPARIN 40 MG/0.4 ML SQ SCH (10:07)
[2018-11-08] MEDS: OXYcodone/APAP 7.5/325MG TABLET PO PRN ×2 (10:54→21:25)
[2018-11-08 13:30] VITALS: BP 96/57
[2018-11-08 18:31] VITALS: BP 109/68
[2018-11-08] MEDS: TRAZODONE 100MG TABLET PO PRN (21:25)
[2018-11-09 03:44] VITALS: BP 113/71
[2018-11-09 07:18] VITALS: BP 115/73
[2018-11-09] MEDS: VANCOMYCIN 1,300 MG in SODIUM CHLORIDE 0.9% 250 ML IV SCH ×2 (09:35→21:31)
[2018-11-09] MEDS: METHADONE 5 MG TABLET PO SCH ×2 (09:37→21:31)
[2018-11-09] MEDS: BACLOFEN 10 MG TABLET PO SCH ×3 (09:37→21:31)
[2018-11-09] MEDS: PREGABALIN 150 MG CAPSULE PO SCH ×2 (09:37→21:31)
[2018-11-09] MEDS: OXYcodone/APAP 7.5/325MG TABLET PO PRN ×3 (09:46→21:31)
[2018-11-09] MEDS: DIPHENHYDRAMINE 25 MG CAPSULE PO PRN (09:46)
[2018-11-09] MEDS: ENOXAPARIN 40 MG/0.4 ML SQ SCH (11:30)
[2018-11-09 13:50] VITALS: BP 128/70
[2018-11-09 18:56] VITALS: BP 102/62
[2018-11-09] MEDS: TRAZODONE 100MG TABLET PO PRN (21:31)
[2018-11-10 02:21] VITALS: BP 105/65
[2018-11-10 07:35] VITALS: BP 100/62
[2018-11-10] MEDS: METHADONE 5 MG TABLET PO SCH (09:33)
[2018-11-10] MEDS: OXYcodone/APAP 7.5/325MG TABLET PO PRN (09:33)
[2018-11-10] MEDS: BACLOFEN 10 MG TABLET PO SCH (09:33)
[2018-11-10] MEDS: VANCOMYCIN 1,300 MG in SODIUM CHLORIDE 0.9% 250 ML IV SCH (09:33)
[2018-11-10] MEDS: PREGABALIN 150 MG CAPSULE PO SCH (09:33)
[2018-11-10] MEDS: DIPHENHYDRAMINE 25 MG CAPSULE PO PRN (09:42)
[2018-11-10] MEDS: ENOXAPARIN 40 MG/0.4 ML SQ SCH (10:04)
== END 2018-11-10 12:09 | disposition left against medical advice (07) | DRG 580 ==
LOC: ED 21:37 → EDIP 22:59 → 4NOR 10-27
PROVIDERS: ADMIT Family Medicine; ATTEND Family Medicine
PROC: 0KB90ZZ Excision of Right Lower Arm and Wrist Muscle, Open Approach (ICD-10-PCS; 2018-10-28)
PROC: 0KB90ZZ Excision of Right Lower Arm and Wrist Muscle, Open Approach (ICD-10-PCS; principal; 2018-10-28 11:00)
PROC: 0KB70ZZ Excision of Right Upper Arm Muscle, Open Approach (ICD-10-PCS; 2018-10-28 11:00)
PROC: 0KB70ZZ Excision of Right Upper Arm Muscle, Open Approach (ICD-10-PCS; 2018-11-03)
PROC: 0Y9C0ZZ Drainage of Right Upper Leg, Open Approach (ICD-10-PCS; 2018-11-03)
DX: L03.113 Cellulitis of right upper limb (principal); L03.116 Cellulitis of left lower limb; E27.40 Unspecified adrenocortical insufficiency; F11.23 Opioid dependence with withdrawal; L02.416 Cutaneous abscess of left lower limb; L02.413 Cutaneous abscess of right upper limb; Z53.21 Procedure and treatment not carried out due to patient leaving prior to being seen by health care provider; Z88.0 Allergy status to penicillin; B18.2 Chronic viral hepatitis C; E87.6 Hypokalemia; F17.210 Nicotine dependence, cigarettes, uncomplicated; G54.6 Phantom limb syndrome with pain; Z63.8 Other specified problems related to primary support group; Z86.14 Personal history of Methicillin resistant Staphylococcus aureus infection; Z87.39 Personal history of other diseases of the musculoskeletal system and connective tissue
CPT/HCPCS: 36415; 80048; 80053; 80202; 81003; 81025; 82550; 82565; 83605; 83735; 84145; 84703; 85025; 85651; 86140; 87040; 87070; 87075; 87077; 87186; 87205; 99285; G0378; J0696; J1100; J1170; J1885; J2250; J2405; J2704; J3010; J3370; J3480; Q9967; J0330; J2270; J7050; Q0163